=== PATIENT | female | born 1940 | race Caucasian/White ===

== ENCOUNTER 2019-09-08 16:29 | Emergency (ER) | payer MEDICARE, BC | END 2019-09-08 20:05 | disposition home or self-care (01) | LOC: ERS 16:29 | DX: M79.89 Other specified soft tissue disorders (principal); I10 Essential (primary) hypertension; Z79.899 Other long term (current) drug therapy | CPT/HCPCS: 36415; 83880; 99283 ==

== ENCOUNTER 2019-09-20 10:31 | Inpatient (IN) | payer MEDICARE, BC ==
[2019-09-20 11:01] LABS: #Eosinphils 0.1 thou/uL (0.0-0.7); #Lymphocytes 1.1 thou/uL (1.20-3.40); #Monocytes 0.8 thou/uL (0.11-0.59); #Neutrophils 7.5 thou/uL (1.40-6.50); %Basophils 0.4 % (0.0-1.0); %Eosinophils 0.8 % (0.0-10.0); %Lymphocytes 11.4 % (21.0-51.0); %Monocytes 8.3 % (0.0-10.0); %Neutrophils 79.1 % (42.0-75.0); Hemoglobin 13.2 g/dL (12.0-16.0); Mean Corpuscular HGB CONC 31.9 g/dL (32.0-36.0); Mean Corpuscular Hemoglobin 27.6 pg (27.0-31.0); Mean Corpuscular Volume 86.5 fL (78.0-98.0); Mean Platelet Volume 7.8 fL (7.4-10.4); Platelet Count 300 thou/uL (130-400); RBC Distribution Width 13.8 % (11.5-14.5); White Blood Cell (WBC) Count 9.4 thou/uL (4.8-10.8)
--- NOTE | 2019-09-20 11:15 | RAD ---
PA AND LATERAL CHEST: Date: 09/20/2019 HISTORY: Leg swelling and shortness of breath. COMPARISON: None. FINDINGS: Heart size within normal limits. There are bilateral pleural effusions and associated bibasilar lung changes. Mild vascular engorgement is noted. IMPRESSION: Moderate bilateral pleural effusions with bibasilar lung changes, probably related to atelectasis. Mi ld vascular prominence, but no interstitial edema change seen. POS: [facility]
[2019-09-20 11:26] LABS: ALT (SGPT) 25 U/L (8-55); AST (SGOT) 23 U/L (5-34); Albumin 3.6 g/dL (3.4-4.8); Alkaline Phosphatase 120 U/L (40-110); Anion Gap 13 mmol/L (10-20); BUN (Urea Nitrogen) 20 mg/dL (9.8-20.1); Bilirubin, Total 0.9 mg/dL (0.2-1.2); Calc. Creatinine Clearance 0 mL/min (70-130); Calcium 9.3 mg/dL (7.8-10.44); Carbon Dioxide 23 mmol/L (23-31); Chloride 103 mmol/L (98-107); Estimated GFR-MDRD 58; Globulin 3.4 g/dL (2.4-3.5); Glucose 131 mg/dL (83-110); Potassium 4.2 mmol/L (3.5-5.1); Sodium 135 mmol/L (136-145)
[2019-09-20 11:48] LABS: CKMB 3.4 ng/mL (0-6.6)
[2019-09-20] MEDS ORDERED: Cefepime 2 GM VIAL ONE (12:23)
[2019-09-20] MEDS ORDERED: Furosemide 40 MG/4 ML VIAL ONE (12:23)
[2019-09-20] MEDS ORDERED: Vancomycin HCl 1.25 GM in Sodium Chloride 0.9% 250 ML 250 ML IVPB SCH (12:30)
[2019-09-20 14:32] LABS: Troponin I 0.034 ng/mL (< 0.028)
[2019-09-20] MEDS ORDERED: Ondansetron ODT 4 MG TAB SL PRN (17:39)
[2019-09-20] MEDS ORDERED: Ondansetron PF 4 MG/2 ML Vial IVP PRN (17:39)
[2019-09-20] MEDS ORDERED: Acetaminophen 325 MG TAB PO PRN (17:39)
--- NOTE | 2019-09-20 18:23 | PDOC.HHP ---
Hospitalist HPI - History of Present Illness SOB and BLE swelling x 2 weeks History of Present Illness: The patient is a 78/F with PMH significant for HTN and heart murmur that presents to ER for above complaint. The patient reports increasing bilateral lower extremity swelling over past two weeks. Reports some associated HERMAN and dry cough. Denies orthopnea, chest pain or heart palpitations. Reports striking her right baker on her bed two days ago, which caused a wound, denies any fever, chills, nausea or vomiting. She was seen in the ER approximately two weeks prior for swelling to her Lower extremities. BNP 921. She was discharged from the ER with instructions to increase her spironolactone and follow up with PCP. She said she increased her medication but it was not helping. ED Course: VS T 97.6F, BP 163/104, HR 112, RR 20, Sp02 95% RA EKG Sinus Tachycardia CXR Bilateral pulmonary effusions BNP 1229 CE indeterminate LA 2.0 Given Vanc and Cefipime Lasix 40mg IVP Hospitalist ROS - Review of Systems Constitutional: denies: fever, chills, sweats, weakness, malaise, other Eyes: denies: pain, vision change, conjunctivae inflammation, eyelid inflammation, redness, other ENT: denies: ear pain, ear discharge, nose pain, nose discharge, nose congestion , mouth pain, mouth swelling, throat pain, throat swelling, other Respiratory: reports: cough, dry, shortness of breath, SOB with excertion. denies: hemoptysis, pleuritic pain, sputum, wheezing Cardiovascular: reports: edema. denies: chest pain, palpitations, orthopnea, paroxysmal noc. dyspnea, light headedness, other Gastrointestinal: denies: nausea, vomiting, abdominal pain, diarrhea, constipation, melena, hematochezia, other Genitourinary: denies: dysuria, frequency, incontinence, hematuria, retention, other Musculoskeletal: denies: neck pain, shoulder pain, arm pain, back pain, hand pain, leg pain, foot pain, other Skin: reports: lesions (wound to RLE baker) Neurological: denies: weakness, numbness, incoordination, change in speech, confusion, seizures, other Hospitalist History - Past Medical History Cardiac: reports: HTN, Other (heart murmur) Pulmonary: reports: no pertinent history [employer] 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 Gastrointestinal: reports: no pertinent history Heme/Onc: reports: no pertinent history Hepatobiliary: reports: no pertinent history Psych: reports: no pertinent history Musculoskeletal: reports: no pertinent history Rheumatologic: reports: no pertinent history Infectious Disease: reports: no pertinent history ENT: reports: no pertinent history Renal/: reports: no pertinent history Endocrine: reports: no pertinent history Dermatology: reports: no pertinent history - Past Surgical History Past Surgical History: reports: no pertinent history - Family History Family History: reports: no pertinent history - Social History Smoking Status: Never smoker Alcohol: reports: None Drugs: reports: none Living Situation: With Family Occupation: Lives with friend in [place], 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 [employer] Activity level: independent ambulation - Exam General Appearance: NAD, awake alert Eye: anicteric sclera ENT: normocephalic atraumatic Neck: supple, no JVD, no thyromegaly Heart: RRR, no gallops, diminshed peripheral pulses, III/IV Respiratory: no wheezes, rales Respiratory - other findings: lower lobes Gastrointestinal: soft, non-tender, non-distended, normal bowel sounds, no guarding, no rigidity Extremities: no cyanosis, no clubbing Extremities - other findings: 3+ edema BLE Skin - other findings: RLE cellulits with stasis ulcer to baker Neurological: cranial nerve grossly intact, no focal deficits Musculoskeletal: normal tone, normal strength Psychiatric: normal affect, A&O x 3 Hospitalist Results - Labs Result Diagrams: 09/20/19 10:46 09/20/19 10:46 Lab results: WBC 9.4 thou/uL (4.8-10.8) 09/20/19 10:46 Hgb 13.2 g/dL (12.0-16.0) 09/20/19 10:46 Hct 41.5 % (36.0-47.0) 09/20/19 10:46 MCV 86.5 fL (78.0-98.0) 09/20/19 10:46 Plt Count 300 thou/uL (130-400) 09/20/19 10:46 Neutrophils % 79.1 % (42.0-75.0) H 09/20/19 10:46 Sodium 135 mmol/L (136-145) L 09/20/19 10:46 Potassium 4.2 mmol/L (3.5-5.1) 09/20/19 10:46 Chloride 103 mmol/L (98-107) 09/20/19 10:46 Carbon Dioxide 23 mmol/L (23-31) 09/20/19 10:46 BUN 20 mg/dL (9.8-20.1) 09/20/19 10:46 Creatinine 0.93 mg/dL (0.6-1.1) 09/20/19 10:46 Glucose 131 mg/dL (83-110) H 09/20/19 10:46 Lactic Acid 2.0 mmol/L (0.5-2.2) 09/20/19 12:39 Calcium 9.3 mg/dL (7.8-10.44) 09/20/19 10:46 Total Bilirubin 0.9 mg/dL (0.2-1.2) 09/20/19 10:46 AST 23 U/L (5-34) 09/20/19 10:46 ALT 25 U/L (8-55) 09/20/19 10:46 Alkaline Phosphatase 120 U/L (40-110) H 09/20/19 10:46 CK-MB (CK-2) 3.4 ng/mL (0-6.6) 09/20/19 10:46 Troponin I 0.030 ng/mL (< 0.028) H 09/20/19 16:49 B-Natriuretic Peptide 1229.5 pg/mL (0-100) H 09/20/19 10:46 Serum Total Protein 7.0 g/dL (6.0-8.3) 09/20/19 10:46 Albumin 3.6 g/dL (3.4-4.8) 09/20/19 10:46 Additional comment: Laboratory Tests 09/20/19 09/20/19 09/20/19 10:46 10:46 12:39 Lactic Acid 2.0 CK-MB (CK-2) 3.4 Troponin I 0.031 H B-Natriuretic Peptide 1229.5 H 09/20/19 09/20/19 13:46 16:49 Lactic Acid CK-MB (CK-2) Troponin I 0.034 H 0.030 H B-Natriuretic Peptide - EKG Interpretation EKG: sinus tachycardia - Radiology Interpretation Chest x-ray Status: report reviewed by me Hospitalist H&P A/P - Plan Plan: Impression: Acute CHF exacerbation Bilateral pleural effusions Heart murmur III/ Cellulitis, right lower extremity Indeterminate troponins HTN,chronic Plan: manager monitoring Continue lasix Start BB and JEFERSON-I obtain Echocardiogram Consult cardiology and Cardiac rehab Continue IV Vanc Consult wound care Continue ASA 81mg Will hold spironolactone for now. BMP, CBC, TSH, Mg, FLP in AM
[2019-09-20] MEDS ORDERED: Vancomycin HCl 750 MG in Sodium Chloride 0.9% 250 ML 250 ML IVPB SCH (20:00)
[2019-09-20] MEDS ORDERED: Lisinopril 5 MG TAB PO SCH (21:00)
[2019-09-20] MEDS ORDERED: Carvedilol 3.125 MG TAB PO SCH (21:00)
[2019-09-20] MEDS ORDERED: Famotidine 20 MG TAB PO SCH (21:00)
[2019-09-20] MEDS: Furosemide 40 MG/4 ML VIAL SLOW IVP SCH (21:15)
[2019-09-21 04:56] LABS: #Basophils 0.1 thou/uL (0.0-0.2); #Eosinphils 0.2 thou/uL (0.0-0.7); #Lymphocytes 1.5 thou/uL (1.20-3.40); #Monocytes 0.9 thou/uL (0.11-0.59); #Neutrophils 6.7 thou/uL (1.40-6.50); %Basophils 0.9 % (0.0-1.0); %Eosinophils 2.2 % (0.0-10.0); %Lymphocytes 16.1 % (21.0-51.0); %Neutrophils 70.8 % (42.0-75.0); Mean Corpuscular HGB CONC 32.9 g/dL (32.0-36.0); Mean Corpuscular Hemoglobin 28.2 pg (27.0-31.0); Mean Corpuscular Volume 85.8 fL (78.0-98.0); Mean Platelet Volume 8.4 fL (7.4-10.4); Platelet Count 256 thou/uL (130-400); RBC Distribution Width 13.5 % (11.5-14.5); Red Blood Cell (RBC) Count 4.59 mill/uL (4.20-5.40); White Blood Cell (WBC) Count 9.4 thou/uL (4.8-10.8)
[2019-09-21 05:21] LABS: Anion Gap 16 mmol/L (10-20); BUN (Urea Nitrogen) 23 mg/dL (9.8-20.1); Calc. Creatinine Clearance 32 mL/min (70-130); Calcium 8.8 mg/dL (7.8-10.44); Carbon Dioxide 25 mmol/L (23-31); Cardiac Risk 2.8 (Less than 4.5); Chloride 100 mmol/L (98-107); Cholesterol 153 mg/dl (< 200 Desired); Estimated GFR-MDRD 53; Glucose 118 mg/dL (83-110); HDL Cholesterol 54 mg/dL (>60 Neg Risk); LDL Cholesterol, Calculated 72 mg/dL; Magnesium 2.1 mg/dL (1.6-2.6); Potassium 3.6 mmol/L (3.5-5.1); Sodium 137 mmol/L (136-145); Triglycerides 136 mg/dL (Less than 150)
--- NOTE | 2019-09-21 08:01 | PDOC.HOSPP ---
- Subjective Encounter Date: 09/21/19 Encounter Time: 13:30 Subjective: Patient still a little SOB. Urinating a lot. Now stating that in addition to BP meds in the past not working, that she developed a bad rash and trouble breathing with lisinopril, she thinks eventually got a rash with nifedipine, and not sure about betablockers. Can't remember the name of the med. Never been on Carvedilol before. Willing to try this one. Edema in legs much better and redness in RLE resolving. - Objective Vital Signs & Weight: Vital Signs (12 hours) Temp Pulse Resp BP BP Pulse Ox 09/21/19 03:55 97.5 F L 104 H 16 156/92 H 98 09/20/19 21:20 102 H 145/90 H Weight Weight 95 lb 6.4 oz I&O: 09/20/19 09/21/19 09/22/19 06:59 06:59 06:59 Intake Total 450 Output Total 1400 Balance -950 Result Diagrams: 09/21/19 04:08 09/21/19 04:08 Hospitalist ROS - Review of Systems Constitutional: denies: fever, chills Respiratory: reports: shortness of breath, SOB with excertion. denies: cough Cardiovascular: reports: edema. denies: chest pain, palpitations, orthopnea Gastrointestinal: denies: nausea, vomiting, abdominal pain Skin: reports: rash - Medication Medications: Active Medications Generic Name Dose Route Start Last Admin Trade Name Freq PRN Reason Stop Dose Admin Carvedilol 3.125 mg 09/20/19 21:00 09/20/19 21:15 Coreg PO 3.125 mg BID MUKUND Administration Furosemide 40 mg 09/20/19 21:00 09/20/19 21:15 Lasix SLOW IVP 40 mg BID MUKUND Administration Vancomycin HCl 750 mg/ Sodium 250 mls @ 250 mls/hr 09/20/19 20:00 09/20/19 21 :14 Chloride IVPB 250 mls 2000 MUKUND Administration Lisinopril 5 mg 09/20/19 21:00 09/20/19 21:20 Zestril PO Not Given BID MUKUND - Exam General Appearance: NAD, awake alert ENT: moist mucosa Heart: RRR, no gallops, no rubs, murmur present, III/IV Respiratory: no wheezes, no ronchi Respiratory - other findings: few crackles in bases Gastrointestinal: soft, non-tender, non-distended, normal bowel sounds Extremities: 1+ LE edema Extremities - other findings: starting to get wrinkly, redness on right decreased to nml edema red Psychiatric: normal affect, normal behavior, A&O x 3 Hosp A/P (1) Acute CHF (congestive heart failure) Code(s): I50.9 - HEART FAILURE, UNSPECIFIED Status: Acute Qualifiers: Heart failure type: unspecified Qualified Code(s): I50.9 - Heart failure, unspecified (2) Pleural effusion Code(s): J90 - PLEURAL EFFUSION, NOT ELSEWHERE CLASSIFIED Status: Acute Plan: bilateral (3) Cellulitis of right leg Code(s): L03.115 - CELLULITIS OF RIGHT LOWER LIMB Status: Acute (4) Heart murmur Code(s): R01.1 - CARDIAC MURMUR, UNSPECIFIED Status: Chronic (5) Elevated troponin Code(s): R79.89 - OTHER SPECIFIED ABNORMAL FINDINGS OF BLOOD CHEMISTRY Status : Acute (6) HTN (hypertension) Code(s): I10 - ESSENTIAL (PRIMARY) HYPERTENSION Status: Chronic Qualifiers: Hypertension type: essential hypertension Qualified Code(s): I10 - Essential (primary) hypertension - Plan Patient reportedly with allergies JEFERSON-I, nifedipine, possibly betablockers but not really sure and if so was only a rash. Will try a low dose carvedilol dose. Cardiology pending. ECHO pending. Lasix diuresis Vancomycin IV for cellulitis- resolving, will switch to oral Keflex. DVT Proph: Lovenox
[2019-09-21] MEDS: medroxyPROGESTERone Acetate 5 MG TAB PO SCH (08:59)
[2019-09-21] MEDS: Furosemide 40 MG/4 ML VIAL SLOW IVP SCH ×2 (09:00→20:48)
[2019-09-21] MEDS: Enoxaparin Sodium 40 MG/0.4 ML SYRINGE SC SCH (09:00)
[2019-09-21] MEDS: Aspirin Chewable 81 MG TAB PO SCH (09:00)
[2019-09-21 10:58] VITALS: BMI 17.4
[2019-09-21] MEDS: Cephalexin 250 MG CAP PO SCH (17:15)
[2019-09-21] MEDS: Carvedilol 3.125 MG TAB PO SCH (17:15)
--- NOTE | 2019-09-21 17:56 | CON ---
DATE OF CONSULTATION: 09/21/2019 REASON FOR CONSULTATION: CHF. HISTORY OF PRESENT ILLNESS: Ms. Guerrero is a very pleasant 78-year-old white female, who comes to the hospital for shortness of breath and swelling. She has noticed for the last 2 weeks slowly progressive worsening shortness of breath, and worsening bilateral lower extremity edema got to the point where she felt so bad, she decided to come in for evaluation. She was found to have edema with mildly elevated BNP. She was admitted given IV dose of Lasix. She has urinated quite well. Cardiology being consulted for further evaluation and care. On my evaluation, Ms. Guerrero tells me she has had a history of a heart murmur in the past, so she feels this is going to be the problem. We did an echocardiogram earlier today, which I have already seen, and she has severe mitral regurgitation with posterior mitral valve prolapse, likely either congenital prolapse versus a ruptured chordae tendineae. She states she has had this murmur for several years and she thinks she blew it in a spin class about 20 years ago. PAST MEDICAL HISTORY: 1. Hypertension. 2. History of heart murmur. PAST SURGICAL HISTORY: None. FAMILY HISTORY: No early coronary artery disease. SOCIAL HISTORY: No alcohol, tobacco, or drugs. Lives in [place]. 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 She actually does yoga every day. OUTPATIENT MEDICATIONS: 1. Provera. 2. Spironolactone 25 mg a day. 3. Premarin. 4. Aspirin 81 a day. ALLERGIES: AVOCADO, BETA-BLOCKERS, LISINOPRIL, TERRA, PISTACHIO NUTS, VERAPAMIL. REVIEW OF SYSTEMS: A 12-point review of systems was done and was all negative unless stated in the history of present illness. PHYSICAL EXAMINATION: VITAL SIGNS: Temperature 98.4, pulse 104, respiratory rate 18, saturating 95% on room air, blood pressure 145/85. GENERAL: Awake, alert, and oriented x3, in no distress. HEENT: Normocephalic and atraumatic. NECK: Supple. LUNGS: Clear. CARDIOVASCULAR: S1 and S2. There is a very loud grade 3/6 systolic murmur heard at the apex, holosystolic radiated to the rest of the precordium. ABDOMEN: Soft. Positive bowel sounds. EXTREMITIES: 2+ edema with erythema, worse in the right. LABORATORY DATA: Laboratory work was reviewed. White count of 9.4, hemoglobin 13, hematocrit 41, platelet count of 300. Chemistries with sodium of 137, potassium 3.6, GFR of 53 with a creatinine 1.01, and BUN of 23. Troponin has been in the indeterminate range of 0.03, 0.03, 0.03. BNP at 1229. Triglycerides of 136, cholesterol total 153, LDL of 72, HDL of 54, TSH was 4.2. IMAGING STUDIES: Chest x-ray shows bilateral pleural effusions, moderate with bibasilar lung changes, mild vascular prominence, but no edema. Echocardiogram was reviewed and showed an EF of 60% to 65% with dilated right ventricle, dilated left atrium and right atrium. There are small pleural effusions. There are right ventricular systolic pressures estimated at 68 mmHg. There is a posterior mitral valve prolapse, which cannot rule out ruptured chordae with severe anteriorly directed jet of mitral regurgitation. ASSESSMENT: 1. Acute on chronic diastolic heart failure. 2. Severe mitral regurgitation. 3. Posterior leaflet mitral valve prolapse/ruptured chordae. 4. Hypertension. PLAN: 1. Continue IV diuresis. 2. She will need valve replacement. Her EF is adequate for this. We will plan on sending her to [place] when she is better diuresed. We will plan on diuresing her over the weekend. She is still not ready to lay flat for a heart catheterization. Wednesday, we will plan on doing a heart catheterization to see if she is going to need a bypass on top of the valve. If there is no bypass needed, which is what I would hope, we will send her to [place] to hopefully have a minimally invasive mitral valve repair/replacement. 3. The patient understands, verbalized understanding of all this, and we will proceed. Continue diuresis for now. Thank you for letting us participate in the care of your patient. We will follow. Job ID: [id number]
[2019-09-21] MEDS: Famotidine 20 MG TAB PO SCH (20:47)
[2019-09-22] MEDS: Cephalexin 250 MG CAP PO SCH ×4 (00:34→17:36)
[2019-09-22 04:54] LABS: #Basophils 0.1 thou/uL (0.0-0.2); #Eosinphils 0.3 thou/uL (0.0-0.7); #Lymphocytes 1.5 thou/uL (1.20-3.40); #Monocytes 0.9 thou/uL (0.11-0.59); #Neutrophils 6.2 thou/uL (1.40-6.50); %Basophils 1.2 % (0.0-1.0); %Lymphocytes 16.6 % (21.0-51.0); %Neutrophils 69.3 % (42.0-75.0); Hemoglobin 12.7 g/dL (12.0-16.0); Mean Corpuscular HGB CONC 33.2 g/dL (32.0-36.0); Mean Corpuscular Volume 84.3 fL (78.0-98.0); Mean Platelet Volume 8.3 fL (7.4-10.4); Platelet Count 237 thou/uL (130-400); RBC Distribution Width 13.5 % (11.5-14.5); Red Blood Cell (RBC) Count 4.51 mill/uL (4.20-5.40)
[2019-09-22 05:56] LABS: Anion Gap 15 mmol/L (10-20); BUN (Urea Nitrogen) 22 mg/dL (9.8-20.1); Calc. Creatinine Clearance 29 mL/min (70-130); Calcium 8.5 mg/dL (7.8-10.44); Carbon Dioxide 25 mmol/L (23-31); Chloride 100 mmol/L (98-107); Estimated GFR-MDRD 49; Glucose 104 mg/dL (83-110); Potassium 3.5 mmol/L (3.5-5.1); Sodium 136 mmol/L (136-145)
[2019-09-22] MEDS: Furosemide 40 MG/4 ML VIAL SLOW IVP SCH (08:55)
[2019-09-22] MEDS: Carvedilol 3.125 MG TAB PO SCH ×2 (08:56→17:36)
[2019-09-22] MEDS: Aspirin Chewable 81 MG TAB PO SCH (08:56)
[2019-09-22] MEDS: Enoxaparin Sodium 40 MG/0.4 ML SYRINGE SC SCH (08:56)
[2019-09-22] MEDS: medroxyPROGESTERone Acetate 5 MG TAB PO SCH (08:57)
--- NOTE | 2019-09-22 14:37 | PDOC.CPN ---
- Subjective Date: 09/22/19 Time: 14:33 Interval history: She is doing much better. She is able to lay flat without issues. Her legs are less swollen and feels better appetite. - Review of Systems General: denies: fever/chills, weight/appetite/sleep changes, night sweats, fatigue Respiratory: denies: cough, congestion, shortness of breath, exercise intolerance Cardiovascular: denies: chest pain, palpitation, edema, paroxysmal nocturnal dyspnea, orthopnea Gastrointestinal: denies: nausea, vomiting, diarrhea, constipation, abd pain, GI bleeding Musculoskeletal: denies: pain, tenderness, stiffness, swelling, arthritis/ arthralgias Neurological: denies: numbness, syncope, seizure, weakness - Objective Allergies/Adverse Reactions: Allergies Allergy/AdvReac Type Severity Reaction Status Date / Time avocado Allergy Verified 09/20/19 18:31 Beta-Blockers Allergy Verified 09/20/19 12:27 (Beta-Adrenergic Bloc lisinopril Allergy Verified 09/20/19 12:27 caroline Allergy Verified 09/20/19 18:31 pistachio nut Allergy Verified 09/20/19 18:31 verapamil Allergy Verified 09/20/19 12:27 Visit Medications: Current Medications Aspirin (Aspirin Chewable) 81 mg PO DAILY [facility] Last Admin: 09/22/19 08:56 Dose: 81 mg Carvedilol (Coreg) 3.125 mg PO BID-WM [facility] Last Admin: 09/22/19 08:56 Dose: 3.125 mg Cephalexin (Keflex) 500 mg PO Q6HR [facility] Last Admin: 09/22/19 12:36 Dose: 500 mg Enoxaparin Sodium (Lovenox) 30 mg SC 0900 [facility] Estrogens Conjugated (Premarin) 0.9 mg PO DAILY [facility] Last Admin: 09/22/19 08:56 Dose: 0.9 mg Famotidine (Pepcid) 20 mg PO HS [facility] Last Admin: 09/21/19 20:47 Dose: 20 mg Furosemide (Lasix) 40 mg SLOW IVP BID [facility] Last Admin: 09/22/19 08:55 Dose: 40 mg Guaifenesin/Dextromethorphan (Robitussin Dm) 15 ml PO Q4H PRN PRN Reason: Cough Medroxyprogesterone Acetate (Provera) 5 mg PO DAILY [facility] Last Admin: 09/22/19 08:57 Dose: 5 mg Vital Signs & Weight: Vital Signs Temp Pulse Pulse Pulse Resp BP BP 09/22/19 11:40 97.9 F 82 18 09/22/19 10:21 104 H 112 H 126/72 125/68 09/22/19 08:02 97.8 F 95 17 09/22/19 07:53 BP Pulse Ox Pulse Ox 09/22/19 11:40 107/65 98 09/22/19 10:21 96 09/22/19 08:02 124/77 95 09/22/19 07:53 95 Admit Weight 99 lb 8 oz Weight 90 lb 8 oz - Physical Exam General: alert & oriented x3 HEENT: mucus membranes moist Neck: supple neck Cardiac: regular rate and rhythm, systolic murmur Lungs: clear to auscultation Neuro: grossly intact Abdomen: active bowel sounds Extremities: no edema Skin: clear Musculoskeletal: no pain - Labs Result Diagrams: 09/22/19 04:32 09/22/19 04:32 Troponin/CKMB CK-MB (CK-2) 3.4 ng/mL (0-6.6) 09/20/19 10:46 Troponin I 0.030 ng/mL (< 0.028) H 09/20/19 16:49 - Telemetry Sinus rhythms and dysrhythmias: sinus rhythm - Assessment/Plan Assessment/Plan: 1. Acute decompensated heart failure 2. Severe MR 3. Posterior Mitral valve prolapse, cannot rule out ruptured chordae PLAN: - Will plan on [facility] Wednesday in preparation for mitral valve repair/ replacement. - Spoke about sirks and benefits of procedure, risks included but not limited to stroke, MA, , bleeding and need for blood transfusion, limb loss, organ loss. She understands and verbalizes understanding of this and agrees to proceed. - Will do NPO p midnight Wednesday to Wednesday. - Continue IV diuresis for now. Will need gentle hydration wednesday night.
[2019-09-22] MEDS ORDERED: Communication Order-Pharmacy FS SCH (14:45)
--- NOTE | 2019-09-22 15:23 | PDOC.HOSPP ---
- Subjective Encounter Date: 09/22/19 Encounter Time: 10:15 Subjective: pt up in bed no complains. - Objective Vital Signs & Weight: Vital Signs (12 hours) Temp Pulse Pulse Pulse Resp BP BP 09/22/19 11:40 97.9 F 82 18 09/22/19 10:21 104 H 112 H 126/72 125/68 09/22/19 08:02 97.8 F 95 17 09/22/19 07:53 BP Pulse Ox Pulse Ox 09/22/19 11:40 107/65 98 09/22/19 10:21 96 09/22/19 08:02 124/77 95 09/22/19 07:53 95 Weight Admit Weight 99 lb 8 oz Weight 90 lb 8 oz I&O: 09/21/19 09/22/19 09/23/19 06:59 06:59 06:59 Intake Total 450 690 Output Total 1400 2750 Balance -950 -2060 Result Diagrams: 09/22/19 04:32 09/22/19 04:32 Hospitalist ROS - Review of Systems Cardiovascular: denies: chest pain, palpitations, orthopnea, paroxysmal noc. dyspnea, edema, light headedness, other Gastrointestinal: denies: nausea, vomiting, abdominal pain, diarrhea, constipation, melena, hematochezia, other Genitourinary: denies: dysuria, frequency, incontinence, hematuria, retention, other Musculoskeletal: denies: neck pain, shoulder pain, arm pain, back pain, hand pain, leg pain, foot pain, other - Medication Medications: Active Medications Generic Name Dose Route Start Last Admin Trade Name Freq PRN Reason Stop Dose Admin Aspirin 81 mg 09/21/19 09:00 09/22/19 08:56 Aspirin Chewable PO 81 mg DAILY MUKUND Administration Carvedilol 3.125 mg 09/21/19 17:00 09/22/19 08:56 Coreg PO 3.125 mg BID-WM MUKUND Administration Cephalexin 500 mg 09/21/19 18:00 09/22/19 12:36 Keflex PO 500 mg Q6HR MUKUND Administration Estrogens Conjugated 0.9 mg 09/21/19 09:00 09/22/19 08:56 Premarin PO 0.9 mg DAILY MUKUND Administration Famotidine 20 mg 09/21/19 21:00 09/21/19 20:47 Pepcid PO 20 mg HS MUKUND Administration Medroxyprogesterone Acetate 5 mg 09/21/19 09:00 09/22/19 08:57 Provera PO 5 mg DAILY MUKUND Administration - Exam Neck: negative: supple, symmetric, no JVD, no thyromegaly, no lymphadenopathy, no carotid bruit, JVD Heart - other findings: systolic murmur to left sternum Respiratory: negative: CTAB, no wheezes, no rales, no ronchi, normal chest expansion, no tachypnea, normal percussion, rales, rhonchi, tachypneic, wheezes Gastrointestinal: negative: soft, non-tender, non-distended, normal bowel sounds , no palpable masses, no hepatomegaly, no splenomegaly, no bruit, no guarding, no rigidity, tender to palpation, distended, diminished bowl sounds, voluntary guarding Musculoskeletal - other findings: right baker has a small wound, mild erythema. will monitor Hosp A/P - Plan (1) Acute CHF (congestive heart failure) Code(s): I50.9 - HEART FAILURE, UNSPECIFIED Status: Acute Qualifiers: Heart failure type: unspecified Qualified Code(s): I50.9 - Heart failure, unspecified (2) Pleural effusion Code(s): J90 - PLEURAL EFFUSION, NOT ELSEWHERE CLASSIFIED Status: Acute Plan: bilateral (3) Cellulitis of right leg Code(s): L03.115 - CELLULITIS OF RIGHT LOWER LIMB Status: Acute (4) Heart murmur Code(s): R01.1 - CARDIAC MURMUR, UNSPECIFIED Status: Chronic (5) Elevated troponin Code(s): R79.89 - OTHER SPECIFIED ABNORMAL FINDINGS OF BLOOD CHEMISTRY Status : Acute (6) HTN (hypertension) Code(s): I10 - ESSENTIAL (PRIMARY) HYPERTENSION Status: Chronic Qualifiers: Hypertension type: essential hypertension Qualified Code(s): I10 - Essential (primary) hypertension 7) Mitral regurgitation. - Plan Patient reportedly with allergies JEFERSON-I, nifedipine, possibly betablockers but not really sure and if so was only a rash. Will try a low dose carvedilol dose. Cardiology pending. ECHO pending. Lasix diuresis Vancomycin IV for cellulitis- resolving, will switch to oral Keflex. DVT Proph: Lovenox pt to undergo cardiac cath on wednesday. possible transfer to [place] for Mitral valve repair/replacement
[2019-09-22] MEDS: Famotidine 20 MG TAB PO SCH (21:48)
[2019-09-23] MEDS: Cephalexin 250 MG CAP PO SCH ×4 (01:23→17:13)
[2019-09-23 04:59] LABS: Anion Gap 15 mmol/L (10-20); BUN (Urea Nitrogen) 25 mg/dL (9.8-20.1); Calc. Creatinine Clearance 32 mL/min (70-130); Calcium 8.5 mg/dL (7.8-10.44); Carbon Dioxide 26 mmol/L (23-31); Chloride 99 mmol/L (98-107); Estimated GFR-MDRD 60; Glucose 100 mg/dL (83-110); Potassium 3.3 mmol/L (3.5-5.1); Sodium 137 mmol/L (136-145)
[2019-09-23] MEDS ORDERED: Potassium Chloride 20 MEQ TAB PO SCH (08:00)
[2019-09-23] MEDS ORDERED: Furosemide 40 MG/4 ML VIAL SLOW IVP SCH (09:00)
[2019-09-23] MEDS: Aspirin Chewable 81 MG TAB PO SCH (09:17)
[2019-09-23] MEDS: Enoxaparin Sodium 30 MG/0.3 ML SYRINGE SC SCH (09:18)
[2019-09-23] MEDS: medroxyPROGESTERone Acetate 5 MG TAB PO SCH (09:18)
[2019-09-23] MEDS: Carvedilol 3.125 MG TAB PO SCH ×2 (09:18→17:14)
--- NOTE | 2019-09-23 11:53 | PDOC.CPN ---
- Subjective Date: 09/23/19 Time: 11:57 Interval history: The pt seen and examined. No overnight events. No cardiac complaints. - Objective Allergies/Adverse Reactions: Allergies Allergy/AdvReac Type Severity Reaction Status Date / Time avocado Allergy Verified 09/20/19 18:31 Beta-Blockers Allergy Verified 09/20/19 12:27 (Beta-Adrenergic Bloc lisinopril Allergy Verified 09/20/19 12:27 caroline Allergy Verified 09/20/19 18:31 pistachio nut Allergy Verified 09/20/19 18:31 verapamil Allergy Verified 09/20/19 12:27 Visit Medications: Current Medications Aspirin (Aspirin Chewable) 81 mg PO DAILY [facility] Last Admin: 09/23/19 09:17 Dose: 81 mg Carvedilol (Coreg) 3.125 mg PO BID-[facility] Last Admin: 09/23/19 09:18 Dose: 3.125 mg Cephalexin (Keflex) 500 mg PO Q6HR [facility] Last Admin: 09/23/19 11:17 Dose: 500 mg Enoxaparin Sodium (Lovenox) 30 mg SC 0900 [facility] Last Admin: 09/23/19 09:18 Dose: 30 mg Estrogens Conjugated (Premarin) 0.9 mg PO DAILY [facility] Last Admin: 09/23/19 09:16 Dose: 0.9 mg Famotidine (Pepcid) 20 mg PO HS [facility] Last Admin: 09/22/19 21:48 Dose: 20 mg Furosemide (Lasix) 40 mg SLOW IVP DAILY [facility] Last Admin: 09/23/19 09:18 Dose: 40 mg Guaifenesin/Dextromethorphan (Robitussin Dm) 15 ml PO Q4H PRN PRN Reason: Cough Sodium Chloride (Normal Saline 0.9%) 500 mls @ 50 mls/hr IV .Q10H [facility] Stop: 09/25/19 10:00 Medroxyprogesterone Acetate (Provera) 5 mg PO DAILY [facility] Last Admin: 09/23/19 09:18 Dose: 5 mg Miscellaneous Information (Communication Order-Pharmacy) 0 each FS ONE [facility] Stop: 09/25/19 14:46 Vital Signs & Weight: Vital Signs Temp Pulse Resp BP Pulse Ox 09/23/19 11:14 97.6 F 94 18 115/68 98 09/23/19 07:19 97.9 F 81 18 121/74 94 L 09/23/19 03:38 97.6 F 82 16 118/74 95 Admit Weight 99 lb 8 oz Weight 89 lb 8 oz - Physical Exam General: alert & oriented x3 HEENT: mucus membranes moist Neck: supple neck Cardiac: regular rate and rhythm, S1/S2 Lungs: clear to auscultation, other (cough) Neuro: cranial nerve 2-12 intact Extremities: no edema - Labs Result Diagrams: 09/22/19 04:32 09/23/19 04:16 Troponin/CKMB CK-MB (CK-2) 3.4 ng/mL (0-6.6) 09/20/19 10:46 Troponin I 0.030 ng/mL (< 0.028) H 09/20/19 16:49 - Telemetry Sinus rhythms and dysrhythmias: sinus rhythm - Assessment/Plan Assessment/Plan: 1. Acute decompensated heart failure - stable with RA; on coreg, Lasix; not on JEFERSON/ARB due allergy 2. Severe MR - plan for cath on Wednesday for MV eval and possible tx to [place] 3. Posterior Mitral valve prolapse, cannot rule out ruptured chordae 4. Pleural effusion - on Lasix 5. HTN MAR reviewed * Echo on 09/21/2019 with EF 60-65%, kit Aaron dd, severe MR Pt. seen and eval. by me. I agree with the A/P by the OPTICAL FABRICATOR. Chest: mild bibasilar rales. + murmur. gjm
[2019-09-23] MEDS: Famotidine 20 MG TAB PO SCH (22:02)
[2019-09-24] MEDS: Cephalexin 250 MG CAP PO SCH ×2 (00:58→05:53)
[2019-09-24 05:09] LABS: Anion Gap 14 mmol/L (10-20); BUN (Urea Nitrogen) 28 mg/dL (9.8-20.1); Calc. Creatinine Clearance 35 mL/min (70-130); Calcium 8.5 mg/dL (7.8-10.44); Carbon Dioxide 26 mmol/L (23-31); Chloride 98 mmol/L (98-107); Estimated GFR-MDRD 66; Glucose 104 mg/dL (83-110); Potassium 3.5 mmol/L (3.5-5.1); Sodium 134 mmol/L (136-145)
--- NOTE | 2019-09-24 07:21 | PDOC.HOSPP ---
- Subjective Encounter Date: 09/23/19 Encounter Time: 10:30 Subjective: pt up in bed no complains of pain or sob. - Objective Vital Signs & Weight: Vital Signs (12 hours) Temp Pulse Resp BP Pulse Ox 09/24/19 03:23 98.5 F 89 18 119/81 92 L 09/23/19 21:52 98 Weight Admit Weight 99 lb 8 oz Weight 88 lb 6.4 oz I&O: 09/23/19 09/24/19 09/25/19 06:59 06:59 06:59 Intake Total 960 1100 Output Total 1999 1050 Balance -1040 50 Result Diagrams: 09/22/19 04:32 09/24/19 04:12 Hospitalist ROS - Review of Systems Cardiovascular: denies: chest pain, palpitations, orthopnea, paroxysmal noc. dyspnea, edema, light headedness, other Gastrointestinal: denies: nausea, vomiting, abdominal pain, diarrhea, constipation, melena, hematochezia, other Genitourinary: denies: dysuria, frequency, incontinence, hematuria, retention, other - Medication Medications: Active Medications Generic Name Dose Route Start Last Admin Trade Name Freq PRN Reason Stop Dose Admin Aspirin 81 mg 09/21/19 09:00 09/23/19 09:17 Aspirin Chewable PO 81 mg DAILY MUKUND Administration Carvedilol 3.125 mg 09/21/19 17:00 09/23/19 17:14 Coreg PO 3.125 mg BID-WM MUKUND Administration Cephalexin 500 mg 09/21/19 18:00 09/24/19 05:53 Keflex PO 500 mg Q6HR MUKUND Administration Enoxaparin Sodium 30 mg 09/23/19 09:00 09/23/19 09:18 Lovenox SC 30 mg 0900 MUKUND Administration Estrogens Conjugated 0.9 mg 09/21/19 09:00 09/23/19 09:16 Premarin PO 0.9 mg DAILY MUKUND Administration Famotidine 20 mg 09/21/19 21:00 09/23/19 22:02 Pepcid PO 20 mg HS MUKUND Administration Medroxyprogesterone Acetate 5 mg 09/21/19 09:00 09/23/19 09:18 Provera PO 5 mg DAILY MUKUND Administration - Exam Neck: negative: supple, symmetric, no JVD, no thyromegaly, no lymphadenopathy, no carotid bruit, JVD Heart: negative: RRR, no murmur, no gallops, no rubs, normal peripheral pulses, irregular, diminshed peripheral pulses, murmur present, II/IV, III/IV Respiratory: negative: CTAB, no wheezes, no rales, no ronchi, normal chest expansion, no tachypnea, normal percussion, rales, rhonchi, tachypneic, wheezes Gastrointestinal: negative: soft, non-tender, non-distended, normal bowel sounds , no palpable masses, no hepatomegaly, no splenomegaly, no bruit, no guarding, no rigidity, tender to palpation, distended, diminished bowl sounds, voluntary guarding Extremities - other findings: right leg mild erythema and opening to right baker area Hosp A/P - Plan (1) Acute CHF (congestive heart failure) Code(s): I50.9 - HEART FAILURE, UNSPECIFIED Status: Acute Qualifiers: Heart failure type: unspecified Qualified Code(s): I50.9 - Heart failure, unspecified (2) Pleural effusion Code(s): J90 - PLEURAL EFFUSION, NOT ELSEWHERE CLASSIFIED Status: Acute Plan: bilateral (3) Cellulitis of right leg Code(s): L03.115 - CELLULITIS OF RIGHT LOWER LIMB Status: Acute (4) Heart murmur Code(s): R01.1 - CARDIAC MURMUR, UNSPECIFIED Status: Chronic (5) Elevated troponin Code(s): R79.89 - OTHER SPECIFIED ABNORMAL FINDINGS OF BLOOD CHEMISTRY Status : Acute (6) HTN (hypertension) Code(s): I10 - ESSENTIAL (PRIMARY) HYPERTENSION Status: Chronic Qualifiers: Hypertension type: essential hypertension Qualified Code(s): I10 - Essential (primary) hypertension 7) Mitral regurgitation. - Plan Patient reportedly with allergies JEFERSON-I, nifedipine, possibly betablockers but not really sure and if so was only a rash. Will try a low dose carvedilol dose. Cardiology pending. ECHO pending. Lasix diuresis Vancomycin IV for cellulitis- resolving, will switch to oral Keflex. DVT Proph: Lovenox pt to undergo cardiac cath on wednesday. possible transfer to [place] for Mitral valve repair/replacement pt doing well, she is on estrogen and progesterone for about 30y and states that it helps her with headaches. she did has menstrual headaches and continued to have headaches after that.this has been the only thing that has worked for her. I did explain to her the risk of blood clots and CV risk factors. she does not want to stop or taper her meds. will change her lasix to po in am.
[2019-09-24] MEDS: medroxyPROGESTERone Acetate 5 MG TAB PO SCH (08:23)
[2019-09-24] MEDS: Furosemide 40 MG TAB PO SCH (08:23)
[2019-09-24] MEDS: Carvedilol 3.125 MG TAB PO SCH ×2 (08:23→16:06)
[2019-09-24] MEDS: Enoxaparin Sodium 30 MG/0.3 ML SYRINGE SC SCH (08:24)
[2019-09-24] MEDS: cefTRIAXone\\ROCEPHIN 1 GM in Sodium Chloride 0.9% 100 ML IVPB SCH (08:24)
[2019-09-24] MEDS: Aspirin Chewable 81 MG TAB PO SCH (08:24)
[2019-09-24] MEDS: Guaifenesin DM 100-10/5 ML UDCUP PO PRN ×2 (08:27→16:06)
--- NOTE | 2019-09-24 11:16 | PDOC.HOSPP ---
- Subjective Encounter Date: 09/24/19 Encounter Time: 11:15 Subjective: pt up in bed no complains - Objective Vital Signs & Weight: Vital Signs (12 hours) Temp Pulse Resp BP Pulse Ox 09/24/19 07:12 97.6 F 90 16 129/78 94 L 09/24/19 03:23 98.5 F 89 18 119/81 92 L Weight Admit Weight 99 lb 8 oz Weight 88 lb 6.4 oz I&O: 09/23/19 09/24/19 09/25/19 06:59 06:59 06:59 Intake Total 960 1100 Output Total 1999 105 Balance -1040 50 Result Diagrams: 09/22/19 04:32 09/24/19 04:12 Hospitalist ROS - Review of Systems Cardiovascular: denies: chest pain, palpitations, orthopnea, paroxysmal noc. dyspnea, edema, light headedness, other Gastrointestinal: denies: nausea, vomiting, abdominal pain, diarrhea, constipation, melena, hematochezia, other Genitourinary: denies: dysuria, frequency, incontinence, hematuria, retention, other - Medication Medications: Active Medications Generic Name Dose Route Start Last Admin Trade Name Freq PRN Reason Stop Dose Admin Aspirin 81 mg 09/21/19 09:00 09/24/19 08:24 Aspirin Chewable PO 81 mg DAILY MUKUND Administration Carvedilol 3.125 mg 09/21/19 17:00 09/24/19 08:23 Coreg PO 3.125 mg BID-WM MUKUND Administration Enoxaparin Sodium 30 mg 09/23/19 09:00 09/24/19 08:24 Lovenox SC 30 mg 09 MUKUND Administration Estrogens Conjugated 0.9 mg 09/21/19 09:00 09/24/19 08:23 Premarin PO 0.9 mg DAILY MUKUND Administration Famotidine 20 mg 09/21/19 21:00 09/23/19 22:02 Pepcid PO 20 mg HS MUKUND Administration Furosemide 40 mg 09/24/19 07:30 09/24/19 08:23 Lasix PO 40 mg DAILY-AC MUKUND Administration Guaifenesin/Dextromethorphan 15 ml 09/20/19 18:17 09/24/19 08:27 Robitussin Dm PO 15 ml Q4H PRN Administration Cough Ceftriaxone Sodium 1 gm/ 100 mls @ 200 mls/hr 09/24/19 08:00 09/24/19 08:24 Sodium Chloride IVPB 100 mls Q24HR MUKUND Administration Medroxyprogesterone Acetate 5 mg 09/21/19 09:00 09/24/19 08:23 Provera PO 5 mg DAILY MUKUND Administration Sodium Chloride 10 ml 09/24/19 09:00 09/24/19 08:28 Flush - Normal Saline IVF 10 ml Q12HR MUKUND Administration - Exam Neck: negative: supple, symmetric, no JVD, no thyromegaly, no lymphadenopathy, no carotid bruit, JVD Heart: negative: RRR, no murmur, no gallops, no rubs, normal peripheral pulses, irregular, diminshed peripheral pulses, murmur present, II/IV, III/IV Respiratory: negative: CTAB, no wheezes, no rales, no ronchi, normal chest expansion, no tachypnea, normal percussion, rales, rhonchi, tachypneic, wheezes Gastrointestinal: negative: soft, non-tender, non-distended, normal bowel sounds , no palpable masses, no hepatomegaly, no splenomegaly, no bruit, no guarding, no rigidity, tender to palpation, distended, diminished bowl sounds, voluntary guarding Extremities - other findings: mild erythema noted to right lower baker area Hosp A/P - Plan (1) Acute CHF (congestive heart failure) Code(s): I50.9 - HEART FAILURE, UNSPECIFIED Status: Acute Qualifiers: Heart failure type: unspecified Qualified Code(s): I50.9 - Heart failure, unspecified (2) Pleural effusion Code(s): J90 - PLEURAL EFFUSION, NOT ELSEWHERE CLASSIFIED Status: Acute Plan: bilateral (3) Cellulitis of right leg Code(s): L03.115 - CELLULITIS OF RIGHT LOWER LIMB Status: Acute (4) Heart murmur Code(s): R01.1 - CARDIAC MURMUR, UNSPECIFIED Status: Chronic (5) Elevated troponin Code(s): R79.89 - OTHER SPECIFIED ABNORMAL FINDINGS OF BLOOD CHEMISTRY Status : Acute (6) HTN (hypertension) Code(s): I10 - ESSENTIAL (PRIMARY) HYPERTENSION Status: Chronic Qualifiers: Hypertension type: essential hypertension Qualified Code(s): I10 - Essential (primary) hypertension 7) Mitral regurgitation. - Plan Patient reportedly with allergies JEFERSON-I, nifedipine, possibly betablockers but not really sure and if so was only a rash. Will try a low dose carvedilol dose. Cardiology pending. ECHO pending. Lasix diuresis Vancomycin IV for cellulitis- resolving, will switch to oral Keflex. DVT Proph: Lovenox pt to undergo cardiac cath on wednesday. possible transfer to [place] for Mitral valve repair/replacement pt doing well, she is on estrogen and progesterone for about 30y and states that it helps her with headaches. she did has menstrual headaches and continued to have headaches after that.this has been the only thing that has worked for her. I did explain to her the risk of blood clots and CV risk factors. she does not want to stop or taper her meds. will change her lasix to po in am. 09/23 will change po to iv abx for now. will change her lasix to po today. she is going for cardiac cath in am.
--- NOTE | 2019-09-24 14:27 | PDOC.CPN ---
- Subjective Date: 09/24/19 Time: 14:28 Interval history: The pt seen and examined. No overnight events. No cardiac complaints. - Objective Allergies/Adverse Reactions: Allergies Allergy/AdvReac Type Severity Reaction Status Date / Time avocado Allergy Verified 09/20/19 18:31 Beta-Blockers Allergy Verified 09/20/19 12:27 (Beta-Adrenergic Bloc lisinopril Allergy Verified 09/20/19 12:27 caroline Allergy Verified 09/20/19 18:31 pistachio nut Allergy Verified 09/20/19 18:31 verapamil Allergy Verified 09/20/19 12:27 Visit Medications: Current Medications Aspirin (Aspirin Chewable) 81 mg PO DAILY [facility] Last Admin: 09/24/19 08:24 Dose: 81 mg Carvedilol (Coreg) 3.125 mg PO BID-WM [facility] Last Admin: 09/24/19 08:23 Dose: 3.125 mg Enoxaparin Sodium (Lovenox) 30 mg SC 0900 [facility] Last Admin: 09/24/19 08:24 Dose: 30 mg Estrogens Conjugated (Premarin) 0.9 mg PO DAILY [facility] Last Admin: 09/24/19 08:23 Dose: 0.9 mg Famotidine (Pepcid) 20 mg PO HS [facility] Last Admin: 09/23/19 22:02 Dose: 20 mg Furosemide (Lasix) 40 mg PO DAILY-AC [facility] Last Admin: 09/24/19 08:23 Dose: 40 mg Guaifenesin/Dextromethorphan (Robitussin Dm) 15 ml PO Q4H PRN PRN Reason: Cough Last Admin: 09/24/19 08:27 Dose: 15 ml Sodium Chloride (Normal Saline 0.9%) 500 mls @ 50 mls/hr IV .Q10H MUKUND Stop: 09/25/19 10:00 Ceftriaxone Sodium 1 gm/ (Sodium Chloride) 100 mls @ 200 mls/hr IVPB Q24HR [facility] Last Admin: 09/24/19 08:24 Dose: 100 mls Medroxyprogesterone Acetate (Provera) 5 mg PO DAILY [facility] Last Admin: 09/24/19 08:23 Dose: 5 mg Miscellaneous Information (Communication Order-Pharmacy) 0 each FS ONE [facility] Stop: 09/25/19 14:46 Sodium Chloride (Flush - Normal Saline) 10 ml IVF Q12HR [facility] Last Admin: 09/24/19 08:28 Dose: 10 ml Sodium Chloride (Flush - Normal Saline) 10 ml IVF PRN PRN PRN Reason: Saline Flush Vital Signs & Weight: Vital Signs Temp Pulse Resp BP Pulse Ox 09/24/19 11:15 98.1 F 86 16 110/71 97 09/24/19 07:12 97.6 F 90 16 129/78 94 L 09/24/19 03:23 98.5 F 89 18 119/81 92 L Admit Weight 99 lb 8 oz Weight 88 lb 6.4 oz - Physical Exam General: alert & oriented x3 HEENT: mucus membranes moist Neck: supple neck Cardiac: regular rate and rhythm, S1/S2 Lungs: clear to auscultation Neuro: cranial nerve 2-12 intact - Labs Result Diagrams: 09/22/19 04:32 09/24/19 04:12 Troponin/CKMB CK-MB (CK-2) 3.4 ng/mL (0-6.6) 09/20/19 10:46 Troponin I 0.030 ng/mL (< 0.028) H 09/20/19 16:49 - Telemetry Sinus rhythms and dysrhythmias: sinus rhythm - Assessment/Plan Assessment/Plan: 1. Acute decompensated heart failure - stable with RA; on coreg, Lasix; not on JEFERSON/ARB due allergy 2. Severe MR - plan for cath on Wednesday for MV eval and possible tx to [place] 3. Posterior Mitral valve prolapse, cannot rule out ruptured chordae 4. Pleural effusion - on Lasix 5. HTN MAR reviewed * Echo on 09/21/2019 with EF 60-65%, kit Aaron dd, severe MR * Dr Garcia's pt
[2019-09-24] MEDS: Famotidine 20 MG TAB PO SCH (20:02)
[2019-09-25] MEDS ORDERED: Sodium Chloride 0.9% 500 ML IV SCH (00:01)
[2019-09-25 04:57] LABS: Anion Gap 12 mmol/L (10-20); BUN (Urea Nitrogen) 23 mg/dL (9.8-20.1); Calc. Creatinine Clearance 36 mL/min (70-130); Calcium 8.4 mg/dL (7.8-10.44); Carbon Dioxide 24 mmol/L (23-31); Chloride 101 mmol/L (98-107); Estimated GFR-MDRD 70; Glucose 110 mg/dL (83-110); Potassium 3.4 mmol/L (3.5-5.1); Sodium 134 mmol/L (136-145)
[2019-09-25] MEDS: Carvedilol 3.125 MG TAB PO SCH ×2 (05:35→16:45)
[2019-09-25] MEDS: Furosemide 40 MG TAB PO SCH (05:36)
[2019-09-25] MEDS: cefTRIAXone\\ROCEPHIN 1 GM in Sodium Chloride 0.9% 100 ML IVPB SCH (05:36)
[2019-09-25] MEDS: Aspirin Chewable 81 MG TAB PO SCH (05:36)
[2019-09-25] MEDS: medroxyPROGESTERone Acetate 5 MG TAB PO SCH (05:37)
[2019-09-25] MEDS: Enoxaparin Sodium 30 MG/0.3 ML SYRINGE SC SCH (05:40)
[2019-09-25] MEDS ORDERED: Fentanyl 100 MCG/2 ML VIAL ONE (07:11)
[2019-09-25] MEDS ORDERED: Midazolam HCl 2 mg/2 ml Vial ONE (07:12)
[2019-09-25] MEDS ORDERED: Acetaminophen/Codeine 30-300mg Tablet PO PRN (07:32)
[2019-09-25] MEDS ORDERED: Sodium Chloride 0.9% 200 ML IV PRN (07:32)
[2019-09-25] MEDS ORDERED: Potassium Chloride 20 MEQ TAB PO SCH (10:00)
[2019-09-25] MEDS ORDERED: Iopamidol 370 76% 100 ML VIAL ONE (11:59)
--- NOTE | 2019-09-25 15:25 | PDOC.HOSPP ---
- Subjective Encounter Date: 09/25/19 Encounter Time: 11:30 Subjective: pt up in bed no complains. - Objective Vital Signs & Weight: Vital Signs (12 hours) Temp Pulse Resp BP Pulse Ox 09/25/19 11:05 97.7 F 80 18 119/78 98 09/25/19 08:15 77 20 107/67 99 09/25/19 08:00 97.6 F 79 18 112/78 99 09/25/19 03:46 97.8 F 99 14 138/88 98 Weight Admit Weight 99 lb 8 oz Weight 95 lb 11.2 oz I&O: 09/24/19 09/25/19 09/26/19 06:59 06:59 06:59 Intake Total 8134 587 5126 Output Total 3945 248 4842 Balance 50 225 235 Result Diagrams: 09/22/19 04:32 09/25/19 04:19 Hospitalist ROS - Review of Systems Cardiovascular: denies: chest pain, palpitations, orthopnea, paroxysmal noc. dyspnea, edema, light headedness, other Gastrointestinal: denies: nausea, vomiting, abdominal pain, diarrhea, constipation, melena, hematochezia, other Genitourinary: denies: dysuria, frequency, incontinence, hematuria, retention, other Musculoskeletal: denies: neck pain, shoulder pain, arm pain, back pain, hand pain, leg pain, foot pain, other - Medication Medications: Active Medications Generic Name Dose Route Start Last Admin Trade Name Freq PRN Reason Stop Dose Admin Aspirin 81 mg 09/21/19 09:00 09/25/19 05:36 Aspirin Chewable PO 81 mg DAILY MUKUND Administration Carvedilol 3.125 mg 09/21/19 17:00 09/25/19 05:35 Coreg PO 3.125 mg BID-WM MUKUND Administration Enoxaparin Sodium 30 mg 09/23/19 09:00 09/25/19 05:40 Lovenox SC Not Given 0900 MUKUND Estrogens Conjugated 0.9 mg 09/21/19 09:00 09/25/19 05:37 Premarin PO 0.9 mg DAILY MUKUND Administration Famotidine 20 mg 09/21/19 21:00 09/24/19 20:02 Pepcid PO 20 mg HS MUKUND Administration Furosemide 40 mg 09/24/19 07:30 09/25/19 05:36 Lasix PO 40 mg DAILY-AC MUKUND Administration Guaifenesin/Dextromethorphan 15 ml 09/20/19 18:17 09/24/19 16:06 Robitussin Dm PO 15 ml Q4H PRN Administration Cough Ceftriaxone Sodium 1 gm/ 100 mls @ 200 mls/hr 09/24/19 08:00 09/25/19 05:36 Sodium Chloride IVPB 100 mls Q24HR MUKUND Administration Medroxyprogesterone Acetate 5 mg 09/21/19 09:00 09/25/19 05:37 Provera PO 5 mg DAILY MUKUND Administration Sodium Chloride 10 ml 09/24/19 09:00 09/25/19 05:40 Flush - Normal Saline IVF Not Given Q12HR MUKUND - Exam Neck: negative: supple, symmetric, no JVD, no thyromegaly, no lymphadenopathy, no carotid bruit, JVD Heart: negative: RRR, no murmur, no gallops, no rubs, normal peripheral pulses, irregular, diminshed peripheral pulses, murmur present, II/IV, III/IV Respiratory: negative: CTAB, no wheezes, no rales, no ronchi, normal chest expansion, no tachypnea, normal percussion, rales, rhonchi, tachypneic, wheezes Gastrointestinal: negative: soft, non-tender, non-distended, normal bowel sounds , no palpable masses, no hepatomegaly, no splenomegaly, no bruit, no guarding, no rigidity, tender to palpation, distended, diminished bowl sounds, voluntary guarding Hosp A/P - Plan (1) Acute CHF (congestive heart failure) Code(s): I50.9 - HEART FAILURE, UNSPECIFIED Status: Acute Qualifiers: Heart failure type: unspecified Qualified Code(s): I50.9 - Heart failure, unspecified (2) Pleural effusion Code(s): J90 - PLEURAL EFFUSION, NOT ELSEWHERE CLASSIFIED Status: Acute Plan: bilateral (3) Cellulitis of right leg Code(s): L03.115 - CELLULITIS OF RIGHT LOWER LIMB Status: Acute (4) Heart murmur Code(s): R01.1 - CARDIAC MURMUR, UNSPECIFIED Status: Chronic (5) Elevated troponin Code(s): R79.89 - OTHER SPECIFIED ABNORMAL FINDINGS OF BLOOD CHEMISTRY Status : Acute (6) HTN (hypertension) Code(s): I10 - ESSENTIAL (PRIMARY) HYPERTENSION Status: Chronic Qualifiers: Hypertension type: essential hypertension Qualified Code(s): I10 - Essential (primary) hypertension 7) Mitral regurgitation. - Plan Patient reportedly with allergies JEFERSON-I, nifedipine, possibly betablockers but not really sure and if so was only a rash. Will try a low dose carvedilol dose. Cardiology pending. ECHO pending. Lasix diuresis Vancomycin IV for cellulitis- resolving, will switch to oral Keflex. DVT Proph: Lovenox pt to undergo cardiac cath on wednesday. possible transfer to [place] for Mitral valve repair/replacement pt doing well, she is on estrogen and progesterone for about 30y and states that it helps her with headaches. she did has menstrual headaches and continued to have headaches after that.this has been the only thing that has worked for her. I did explain to her the risk of blood clots and CV risk factors. she does not want to stop or taper her meds. will change her lasix to po in am. 09/23 will change po to iv abx for now. will change her lasix to po today. she is going for cardiac cath in am. 09/24 pt undergoing cardiac cath. no intervention. she will have to be transferred to [place] per cardiology for her MR.
[2019-09-25] MEDS: Benzonatate 100 MG CAP PO PRN (20:04)
[2019-09-25] MEDS: Famotidine 20 MG TAB PO SCH (20:04)
[2019-09-26 05:09] LABS: Anion Gap 13 mmol/L (10-20); BUN (Urea Nitrogen) 23 mg/dL (9.8-20.1); Calc. Creatinine Clearance 37 mL/min (70-130); Calcium 8.6 mg/dL (7.8-10.44); Carbon Dioxide 23 mmol/L (23-31); Chloride 101 mmol/L (98-107); Estimated GFR-MDRD 66; Glucose 104 mg/dL (83-110); Sodium 133 mmol/L (136-145)
[2019-09-26] MEDS: Aspirin Chewable 81 MG TAB PO SCH (08:45)
[2019-09-26] MEDS: Carvedilol 3.125 MG TAB PO SCH ×2 (08:45→17:04)
[2019-09-26] MEDS: cefTRIAXone\\ROCEPHIN 1 GM in Sodium Chloride 0.9% 100 ML IVPB SCH (08:45)
[2019-09-26] MEDS: Furosemide 40 MG TAB PO SCH (08:45)
[2019-09-26] MEDS: medroxyPROGESTERone Acetate 5 MG TAB PO SCH (08:46)
[2019-09-26] MEDS: Enoxaparin Sodium 30 MG/0.3 ML SYRINGE SC SCH (08:46)
[2019-09-26] MEDS: Benzonatate 100 MG CAP PO PRN (08:46)
[2019-09-26] MEDS ORDERED: Furosemide 40 MG/4 ML VIAL IVP SCH (10:45)
--- NOTE | 2019-09-26 11:01 | PRG ---
DATE OF SERVICE: 09/26/2019 SUBJECTIVE: Ms. Guerrero is doing better. She underwent coronary angiography yesterday and was found to have a diagonal disease only. She does have severe mitral regurgitation. Her main complaint today is rash and cough. Her rash has been noted 4 weeks prior to presentation. She also complains of a cough that also occurred 4 weeks prior to presentation. OBJECTIVE: VITAL SIGNS: Blood pressure 141/91, pulse 85, temperature 97.7. LUNGS: Crackles noted bilaterally. HEART: Regular rate and rhythm. ABDOMEN: Soft, nontender, and nondistended. EXTREMITIES: No edema. PERTINENT LABORATORY DATA: Creatinine 0.83. BNP dated 09/20. IMPRESSION: 1. Severe mitral regurgitation. 2. Coronary artery disease. 3. Rash. 4. Cough. RECOMMENDATIONS: Continue Coreg in addition to aspirin. She is not on JEFERSON inhibitor or ARB that may precipitate cough. She does have crackles noted bilaterally and may be related to a left-sided failure. Recommend 40 mg IV Lasix now and re-evaluate. After her symptoms have improved, may need to coordinate transfer versus outpatient followup for mitral valve replacement. At this point, she appears stable. Job ID: [id number]
[2019-09-26] MEDS: Famotidine 20 MG TAB PO SCH (20:52)
[2019-09-26] MEDS: Guaifenesin DM 100-10/5 ML UDCUP PO PRN (20:56)
[2019-09-26 23:00] VITALS: BP 126/79; TEMP 97.8
== END 2019-09-26 23:45 | disposition short-term general hospital (02) | DRG 286 ==
LOC: ERS 10:31 → ERHOLD 14:03 → 2NO 17:32
PROVIDERS: ADMIT Emergency Medicine; ATTEND Emergency Medicine
PROC: 4A023N7 Measurement of Cardiac Sampling and Pressure, Left Heart, Percutaneous Approach (ICD-10-PCS; principal; 2019-09-25)
PROC: B2151ZZ Fluoroscopy of Left Heart using Low Osmolar Contrast (ICD-10-PCS; 2019-09-25)
PROC: B2111ZZ Fluoroscopy of Multiple Coronary Arteries using Low Osmolar Contrast (ICD-10-PCS; 2019-09-25)
DX: I11.0 Hypertensive heart disease with heart failure (principal); I51.1 Rupture of chordae tendineae, not elsewhere classified; L03.115 Cellulitis of right lower limb; I50.33 Acute on chronic diastolic (congestive) heart failure; I34.0 Nonrheumatic mitral (valve) insufficiency; I34.1 Nonrheumatic mitral (valve) prolapse; I83.015 Varicose veins of right lower extremity with ulcer other part of foot; L97.519 Non-pressure chronic ulcer of other part of right foot with unspecified severity; R01.1 Cardiac murmur, unspecified; I25.10 Atherosclerotic heart disease of native coronary artery without angina pectoris; R79.89 Other specified abnormal findings of blood chemistry; R21 Rash and other nonspecific skin eruption; R05 Cough; Z79.82 Long term (current) use of aspirin; Z79.899 Other long term (current) drug therapy; Z88.8 Allergy status to other drugs, medicaments and biological substances; Z91.018 Allergy to other foods
CPT/HCPCS: 36415; 71045; 80048; 80053; 80061; 82553; 83605; 83735; 83880; 84443; 84484; 85025; 87040; 93005; 93306; 93458; 93798; 96365; 96366; 96367; 96375; 99152; C1769; J0692; J0696; J1644; J1650; J1940; J2250; J3010; J3370; J3490; J7050; Q9967

== ENCOUNTER 2023-09-25 19:50 | Inpatient (IN) | payer BC, MEDICARE ==
[2023-09-25 21:12] LABS: #Basophils 0.1 thou/uL (0.0-0.2); #Eosinphils 0.1 thou/uL (0.0-0.7); #Monocytes 0.8 thou/uL (0.11-0.59); #Neutrophils 5.1 thou/uL (1.40-6.50); %Basophils 0.7 % (0.0-1.0); %Eosinophils 0.7 % (0.0-10.0); %Lymphocytes 19.7 % (21.0-51.0); %Monocytes 10.1 % (0.0-10.0); %Neutrophils 68.5 % (42.0-75.0); Hematocrit 37.2 % (36.0-47.0); Hemoglobin 13.2 g/dL (12.0-16.0); Mean Corpuscular HGB CONC 35.5 g/dL (32.0-36.0); Mean Corpuscular Hemoglobin 30.5 pg (27.0-31.0); Mean Corpuscular Volume 85.9 fl (78.0-98.0); Mean Platelet Volume 12.9 fL (7.4-10.4); Platelet Count 101 10x3/uL (130-400); RBC Distribution Width 14.6 % (11.5-14.5); Red Blood Cell (RBC) Count 4.33 mill/uL (4.20-5.40); White Blood Cell (WBC) Count 7.4 10x3/uL (4.8-10.8)
[2023-09-25 21:37] LABS: ALT (SGPT) 27 U/L (8-55); AST (SGOT) 48 U/L (5-34); Albumin 2.8 g/dL (3.4-4.8); Alkaline Phosphatase 141 U/L (40-110); Anion Gap 18 mmol/L (10-20); BUN (Urea Nitrogen) 54 mg/dL (9.8-20.1); Bilirubin, Total 2.7 mg/dL (0.2-1.2); Calc. Creatinine Clearance 0 mL/min (70-130); Calcium 8.6 mg/dL (7.8-10.44); Carbon Dioxide 24 mmol/L (23-31); Chloride 88 mmol/L (98-107); Estimated GFR 20; Globulin 3.3 g/dL (2.4-3.5); Glucose 132 mg/dL (83-110); Potassium 3.2 mmol/L (3.5-5.1); Protein, Total 6.1 g/dL (5.8-8.1); Sodium 127 mmol/L (136-145)
[2023-09-25 21:39] LABS: Troponin I 0.052 ng/mL (< 0.028)
[2023-09-25] MEDS ORDERED: Ondansetron PF 4 MG/2 ML Vial IVP PRN (23:45)
[2023-09-25] MEDS ORDERED: Acetaminophen 325 MG TAB PO PRN (23:45)
[2023-09-25] MEDS ORDERED: Ondansetron ODT 4 MG TAB SL PRN (23:45)
[2023-09-26] MEDS ORDERED: Ondansetron ODT 4 MG TAB PO PRN (01:09)
[2023-09-26] MEDS ORDERED: Acetaminophen 325 MG TAB PO PRN (01:09)
[2023-09-26 01:21] LABS: Troponin I 0.047 ng/mL (< 0.028)
[2023-09-26] MEDS ORDERED: Acetaminophen 500 MG TAB ONE (01:24)
[2023-09-26] MEDS ORDERED: Boostrix 0.5 ML (Tdap) VIAL (>/=7 yrs of age) ONE (01:25)
[2023-09-26] MEDS ORDERED: Bacitracin 1 PK ONE (01:26)
[2023-09-26 04:03] LABS: #Basophils 0.1 thou/uL (0.0-0.2); #Eosinphils 0.1 thou/uL (0.0-0.7); #Monocytes 1.1 thou/uL (0.11-0.59); #Neutrophils 5.7 thou/uL (1.40-6.50); %Basophils 0.6 % (0.0-1.0); %Eosinophils 1.4 % (0.0-10.0); %Lymphocytes 15.4 % (21.0-51.0); %Neutrophils 69.4 % (42.0-75.0); Hematocrit 33.2 % (36.0-47.0); Hemoglobin 11.3 g/dL (12.0-16.0); Mean Corpuscular Hemoglobin 30.1 pg (27.0-31.0); Mean Corpuscular Volume 88.3 fl (78.0-98.0); Mean Platelet Volume 13.5 fL (7.4-10.4); RBC Distribution Width 14.6 % (11.5-14.5); Red Blood Cell (RBC) Count 3.76 mill/uL (4.20-5.40); White Blood Cell (WBC) Count 8.1 10x3/uL (4.8-10.8)
[2023-09-26 04:05] LABS: Platelet Count 87 10x3/uL (130-400)
[2023-09-26 04:23] LABS: Troponin I 0.052 ng/mL (< 0.028)
[2023-09-26] MEDS: Lactated Ringer's 1,000 ML IV SCH (04:23)
[2023-09-26 04:26] LABS: ALT (SGPT) 23 U/L (8-55); AST (SGOT) 40 U/L (5-34); Albumin 2.2 g/dL (3.4-4.8); Alkaline Phosphatase 128 U/L (40-110); Anion Gap 18 mmol/L (10-20); BUN (Urea Nitrogen) 52 mg/dL (9.8-20.1); Bilirubin, Total 1.5 mg/dL (0.2-1.2); Calc. Creatinine Clearance 0 mL/min (70-130); Calcium 7.5 mg/dL (7.8-10.44); Carbon Dioxide 22 mmol/L (23-31); Chloride 96 mmol/L (98-107); Estimated GFR 25; Globulin 2.9 g/dL (2.4-3.5); Glucose 103 mg/dL (83-110); Protein, Total 5.1 g/dL (5.8-8.1); Sodium 133 mmol/L (136-145)
[2023-09-26 04:28] LABS: Critical Call Chemistry nur.lh12@0428; Potassium 2.6 mmol/L (3.5-5.1)
[2023-09-26 05:44] VITALS: BMI 13.7
[2023-09-26] MEDS: Potassium Chloride 20 MEQ TAB PO SCH (06:36)
[2023-09-26] MEDS: Potassium Chloride 10 MEQ in Premix 1 BAG IVPB SCH (06:41)
[2023-09-26 08:33] LABS: Magnesium 1.6 mg/dL (1.6-2.6)
[2023-09-26] MEDS: Famotidine 20 MG TAB PO SCH (10:35)
[2023-09-26] MEDS: Magnesium 2 GM/50 ML(in water) 2 GM in Premix 1 BAG IVPB SCH (14:03)
[2023-09-27 04:47] LABS: #Basophils 0.1 thou/uL (0.0-0.2); #Eosinphils 0.2 thou/uL (0.0-0.7); #Monocytes 1.3 thou/uL (0.11-0.59); #Neutrophils 4.3 thou/uL (1.40-6.50); %Basophils 0.8 % (0.0-1.0); %Eosinophils 3.2 % (0.0-10.0); %Lymphocytes 18.4 % (21.0-51.0); %Monocytes 17.3 % (0.0-10.0); %Neutrophils 60.2 % (42.0-75.0); Hematocrit 34.4 % (36.0-47.0); Hemoglobin 11.4 g/dL (12.0-16.0); Mean Corpuscular HGB CONC 33.1 g/dL (32.0-36.0); Mean Corpuscular Hemoglobin 30.2 pg (27.0-31.0); Mean Platelet Volume 13.7 fL (7.4-10.4); RBC Distribution Width 14.9 % (11.5-14.5); Red Blood Cell (RBC) Count 3.78 mill/uL (4.20-5.40); White Blood Cell (WBC) Count 7.2 10x3/uL (4.8-10.8)
[2023-09-27 04:55] LABS: Platelet Count 80 10x3/uL (130-400)
[2023-09-27 05:16] LABS: ALT (SGPT) 24 U/L (8-55); AST (SGOT) 40 U/L (5-34); Albumin 2.4 g/dL (3.4-4.8); Alkaline Phosphatase 140 U/L (40-110); Anion Gap 12 mmol/L (10-20); BUN (Urea Nitrogen) 42 mg/dL (9.8-20.1); Bilirubin, Total 1.5 mg/dL (0.2-1.2); Calc. Creatinine Clearance 14 mL/min (70-130); Calcium 8.1 mg/dL (7.8-10.44); Carbon Dioxide 23 mmol/L (23-31); Chloride 103 mmol/L (98-107); Estimated GFR 31; Globulin 2.8 g/dL (2.4-3.5); Glucose 81 mg/dL (83-110); Potassium 3.5 mmol/L (3.5-5.1); Protein, Total 5.2 g/dL (5.8-8.1); Sodium 134 mmol/L (136-145)
[2023-09-27] MEDS: Atorvastatin Calcium 40 MG TAB PO SCH (11:17)
[2023-09-27] MEDS: Lactated Ringer's 1,000 ML IV SCH (11:17)
[2023-09-27] MEDS: Clopidogrel Bisulfate 75 MG TAB PO SCH (11:18)
[2023-09-28 04:53] LABS: Anion Gap 11 mmol/L (10-20); BUN (Urea Nitrogen) 41 mg/dL (9.8-20.1); Calc. Creatinine Clearance 14 mL/min (70-130); Calcium 8.2 mg/dL (7.8-10.44); Carbon Dioxide 26 mmol/L (23-31); Chloride 103 mmol/L (98-107); Estimated GFR 30; Glucose 100 mg/dL (83-110); Potassium 4.1 mmol/L (3.5-5.1); Sodium 136 mmol/L (136-145)
[2023-09-28 08:09] LABS: Free T4 (Free Thyroxine) 0.95 ng/dL (0.70-1.48)
[2023-09-29 06:06] LABS: Anion Gap 11 mmol/L (10-20); BUN (Urea Nitrogen) 29 mg/dL (9.8-20.1); Calc. Creatinine Clearance 21 mL/min (70-130); Calcium 7.9 mg/dL (7.8-10.44); Carbon Dioxide 26 mmol/L (23-31); Chloride 103 mmol/L (98-107); Estimated GFR 51; Glucose 84 mg/dL (83-110); Potassium 4.3 mmol/L (3.5-5.1); Sodium 136 mmol/L (136-145)
[2023-09-29 10:41] LABS: Hematocrit 32.3 % (36.0-47.0); Hemoglobin 10.7 g/dL (12.0-16.0); Manual Diff?? YES; Mean Corpuscular HGB CONC 33.1 g/dL (32.0-36.0); Mean Corpuscular Hemoglobin 30.7 pg (27.0-31.0); Mean Corpuscular Volume 92.8 fl (78.0-98.0); Mean Platelet Volume 13.1 fL (7.4-10.4); RBC Distribution Width 15.5 % (11.5-14.5); Red Blood Cell (RBC) Count 3.48 mill/uL (4.20-5.40); White Blood Cell (WBC) Count 4.7 10x3/uL (4.8-10.8)
[2023-09-29 10:51] LABS: Delete Auto Diff?? YES; Platelet Count 78 10x3/uL (130-400)
[2023-09-29 11:22] LABS: Anisocytosis MARKED = >30 cells HPF (0-5); Band 9 % (5-11); Burr Cells MODERATE= 6-15 cells HPF (0-1); CellaVision Operator ID LAB.KW3; Large Platelets 47.5 % (0-5); Lymphocytes 11 % (21-51); Monocytes 12 % (0-10); Neutrophil 68 % (42-75); Platelet Adequacy Comment Platelets Decreased; Poikilocytosis MODERATE=16-30 cells HPF (0-5); Schistocytes SLIGHT = 2-5 cells HPF (0-1); Total Cell Count 99
[2023-09-29] MEDS: Benzonatate 100 MG CAP PO PRN (16:02)
[2023-09-29 17:10] LABS: Influenza A by NAA DETECTED (NotDetected); Influenza B by NAA Not Detected (NotDetected); RSV by NAA Not Detected (NotDetected); SARS-CoV-2 NAA Rapid Test Not Detected (NotDetected)
[2023-09-30 05:20] LABS: Hemoglobin 11.1 g/dL (12.0-16.0); Manual Diff?? YES; Mean Corpuscular HGB CONC 32.6 g/dL (32.0-36.0); Mean Corpuscular Hemoglobin 30.3 pg (27.0-31.0); Mean Corpuscular Volume 92.9 fl (78.0-98.0); Platelet Count 107 10x3/uL (130-400); RBC Distribution Width 15.6 % (11.5-14.5); Red Blood Cell (RBC) Count 3.66 mill/uL (4.20-5.40); White Blood Cell (WBC) Count 6.3 10x3/uL (4.8-10.8)
[2023-09-30 05:31] LABS: Anion Gap 11 mmol/L (10-20); BUN (Urea Nitrogen) 29 mg/dL (9.8-20.1); Calc. Creatinine Clearance 24 mL/min (70-130); Calcium 7.9 mg/dL (7.8-10.44); Carbon Dioxide 22 mmol/L (23-31); Chloride 104 mmol/L (98-107); Estimated GFR 59; Glucose 113 mg/dL (83-110); Potassium 4.1 mmol/L (3.5-5.1); Sodium 133 mmol/L (136-145)
[2023-09-30 05:33] LABS: Delete Auto Diff?? YES
[2023-09-30 06:05] LABS: Anisocytosis SLIGHT = 6-15 cells HPF (0-5); Band 14 % (5-11); CellaVision Operator ID lab.sh2; Lymphocytes 8 % (21-51); Monocytes 5 % (0-10); Neutrophil 72 % (42-75); Ovalocytes SLIGHT = 2-5 cells HPF (0-1); Platelet Adequacy Comment Platelets Decreased; Total Cell Count 100
[2023-09-30] MEDS: Oseltamivir 6 MG/ML ORAL SUSP PO SCH (09:06)
[2023-09-30] MEDS: GUAIFENESIN SF SOLN 200 MG/10 ML UDCUP PO PRN (09:07)
[2023-10-01 05:21] LABS: Hematocrit 30.7 % (36.0-47.0); Manual Diff?? YES; Mean Corpuscular HGB CONC 32.6 g/dL (32.0-36.0); Mean Corpuscular Hemoglobin 30.1 pg (27.0-31.0); Mean Corpuscular Volume 92.5 fl (78.0-98.0); Mean Platelet Volume 11.9 fL (7.4-10.4); Platelet Count 132 10x3/uL (130-400); RBC Distribution Width 16.1 % (11.5-14.5); Red Blood Cell (RBC) Count 3.32 mill/uL (4.20-5.40); White Blood Cell (WBC) Count 5.5 10x3/uL (4.8-10.8)
[2023-10-01 05:46] LABS: Anion Gap 12 mmol/L (10-20); BUN (Urea Nitrogen) 30 mg/dL (9.8-20.1); Calc. Creatinine Clearance 24 mL/min (70-130); Calcium 7.7 mg/dL (7.8-10.44); Carbon Dioxide 26 mmol/L (23-31); Chloride 102 mmol/L (98-107); Estimated GFR 60; Glucose 107 mg/dL (83-110); Potassium 4.5 mmol/L (3.5-5.1); Sodium 135 mmol/L (136-145)
[2023-10-01 06:05] LABS: Delete Auto Diff?? YES
[2023-10-01 08:13] LABS: Anisocytosis MARKED = >30 cells HPF (0-5); Band 12 % (5-11); Burr Cells SLIGHT = 2-5 cells HPF (0-1); CellaVision Operator ID LAB.KW3; Elliptocytes SLIGHT = 2-5 cells HPF (0-1); Eosinophils 1 % (0-10); Large Platelets 18.3 % (0-5); Lymphocytes 10 % (21-51); Microcytosis MODERATE=15-30 cells HPF (0-5); Monocytes 13 % (0-10); Neutrophil 62 % (42-75); Platelet Adequacy Comment Platelets Normal; Poikilocytosis MARKED = >30 cells HPF (0-5); Polychromasia SLIGHT = 2-3 cells HPF (0-2); Schistocytes SLIGHT = 2-5 cells HPF (0-1); Total Cell Count 82
[2023-10-01] MEDS: Benzonatate 100 MG CAP PO SCH (09:00)
[2023-10-01] MEDS: Bacitracin Zinc Ointment 30 gm TUBE TOP SCH (14:31)
[2023-10-01] MEDS ORDERED: medroxyPROGESTERone Acetate 5 MG TAB PO SCH (15:15)
[2023-10-01] MEDS: Carvedilol 3.125 MG TAB PO SCH (18:32)
[2023-10-02 05:09] LABS: #Eosinphils 0.2 thou/uL (0.0-0.7); #Monocytes 0.8 thou/uL (0.11-0.59); #Neutrophils 2.7 thou/uL (1.40-6.50); %Basophils 0.4 % (0.0-1.0); %Eosinophils 3.7 % (0.0-10.0); %Monocytes 16.1 % (0.0-10.0); %Neutrophils 55.8 % (42.0-75.0); Hematocrit 29.6 % (36.0-47.0); Hemoglobin 9.7 g/dL (12.0-16.0); Mean Corpuscular HGB CONC 32.8 g/dL (32.0-36.0); Mean Corpuscular Hemoglobin 30.1 pg (27.0-31.0); Mean Corpuscular Volume 91.9 fl (78.0-98.0); Mean Platelet Volume 11.6 fL (7.4-10.4); Platelet Count 135 10x3/uL (130-400); RBC Distribution Width 16.3 % (11.5-14.5); Red Blood Cell (RBC) Count 3.22 mill/uL (4.20-5.40); White Blood Cell (WBC) Count 4.9 10x3/uL (4.8-10.8)
[2023-10-02 05:26] LABS: Anion Gap 11 mmol/L (10-20); BUN (Urea Nitrogen) 27 mg/dL (9.8-20.1); Calc. Creatinine Clearance 28 mL/min (70-130); Calcium 7.5 mg/dL (7.8-10.44); Carbon Dioxide 24 mmol/L (23-31); Chloride 103 mmol/L (98-107); Estimated GFR 70; Glucose 123 mg/dL (83-110); Potassium 3.7 mmol/L (3.5-5.1); Sodium 134 mmol/L (136-145)
[2023-10-02 07:46] VITALS: BP 107/69; TEMP 98
[2023-10-02] MEDS ORDERED: Calcium Gluconate 100 MG/ML 10 ML IVPB SCH (08:30)
[2023-10-02] MEDS: Potassium Chloride 20 MEQ TAB PO SCH (09:10)
[2023-10-02] MEDS: Calcium Carbonate + Vit D 250 MG TAB PO SCH (09:26)
[2023-10-02] MEDS ORDERED: CALCIUM GLUC 1 GM/NS 50 ML 1 GM in Premix 1 BAG IVPB SCH ×2 (10:00→10:15)
== END 2023-10-02 10:49 | DRG 640 ==
LOC: ERS 19:50 → ERHOLD 23:46 → 2SE 09-26 05:06 → OBSVTOIN 09-26 08:09
PROVIDERS: ADMIT Student in an Organized Health Care Education/Training Program; ATTEND Hospitalist
DX: E86.0 Dehydration (principal); E43 Unspecified severe protein-calorie malnutrition; N17.0 Acute kidney failure with tubular necrosis; Z68.1 Body mass index [BMI] 19.9 or less, adult; N17.9 Acute kidney failure, unspecified; I95.1 Orthostatic hypotension; E87.1 Hypo-osmolality and hyponatremia; E87.6 Hypokalemia; E80.6 Other disorders of bilirubin metabolism; L89.151 Pressure ulcer of sacral region, stage 1; W19.XXXA Unspecified fall, initial encounter; E78.5 Hyperlipidemia, unspecified; S00.03XA Contusion of scalp, initial encounter; S00.83XA Contusion of other part of head, initial encounter; I35.0 Nonrheumatic aortic (valve) stenosis; D69.6 Thrombocytopenia, unspecified; J10.1 Influenza due to other identified influenza virus with other respiratory manifestations; Z91.81 History of falling; Z79.82 Long term (current) use of aspirin; Z79.899 Other long term (current) drug therapy
CPT/HCPCS: 0241U; 36415; 70450; 70486; 71045; 72125; 80048; 80053; 82533; 83735; 84439; 84443; 84481; 84484; 85025; 90471; 90715; 93005; 93306; 96360; 96361; 97139; J3475; J3480; J7120

== ENCOUNTER 2024-07-19 11:33 | Inpatient (IN) | payer MEDICARE ==
[2024-07-19] MEDS ORDERED: EPINEPHrine 1 MG/10 ML Abboject SYRINGE ONE (12:01)
[2024-07-19] MEDS ORDERED: NOREPINEPHRINE 8 MG/250 ML-D5W 250 ML ONE (12:09)
[2024-07-19] MEDS ORDERED: Sodium Chloride 0.9% 100 ML ONE (12:10)
[2024-07-19] MEDS ORDERED: CEFAZOLIN 2 GM VIAL ONE (12:10)
[2024-07-19] MEDS ORDERED: Cefepime 2 GM VIAL ONE (12:11)
[2024-07-19 12:46] LABS: Bacteria/HPF 4+ HPF (None Seen); Bilirubin Negative (Negative); Blood, Urine 3+ (Negative); CAUTI Indications for Culture Alt mental st,lethar; Clarity Extra Turbid (Clear); Glucose, Urine (Dipstick) Normal (Negative); Ketone, Urine Negative (Negative); Leukocyte 500 Leu/uL (Negative); Nitrite Negative (Negative); Protein, Urine (Dipstick) 200 mg/dL (Neg-Trace); Specific Gravity, Urine 1.011 (1.002-1.036); Squamous Epithelial 0-3 HPF (0-3); Transitional Epithelial 0-3 HPF (None Seen); WBC/HPF Greater than 50 HPF (0-3)
[2024-07-19 12:51] LABS: Urine Culture Reflex Yes Yes
[2024-07-19 12:53] LABS: Troponin I 0.094 ng/mL (< 0.028)
[2024-07-19 13:12] LABS: CK (CPK) 14431 U/L (29-168)
[2024-07-19 13:15] LABS: #Basophils Less than 0.03 10x3/uL (0.0-0.2); #Eosinophils Less than 0.03 10x3/uL (0.0-0.7); %Basophils 0.1 % (0.0-1.0); %Lymphocytes 5.3 % (21.0-51.0); %Monocytes 4.4 % (0.0-10.0); %Neutrophils 89.8 % (42.0-75.0); Hematocrit 26.1 % (36.0-47.0); Hemoglobin 8.1 g/dL (12.0-16.0); Mean Corpuscular Hemoglobin 25.1 pg (27.0-31.0); Mean Corpuscular Volume 80.8 fL (78.0-98.0); Platelet Count 93 10x3/uL (130-400); RBC Distribution Width 18.8 % (11.5-14.5); Red Blood Cell (RBC) Count 3.23 mill/uL (4.20-5.40)
[2024-07-19 13:17] LABS: ALT (SGPT) 154 U/L (8-55); AST (SGOT) 480 U/L (5-34); Albumin 2.1 g/dL (3.4-4.8); Alkaline Phosphatase 142 U/L (40-110); Anion Gap 19 mmol/L (10-20); BUN (Urea Nitrogen) 64 mg/dL (9.8-20.1); Bilirubin, Total 4.2 mg/dL (0.2-1.2); Calc. Creatinine Clearance 0 mL/min (70-130); Calcium 6.7 mg/dL (7.8-10.44); Carbon Dioxide 10 mmol/L (23-31); Chloride 105 mmol/L (98-107); Estimated GFR 23; Globulin 2.8 g/dL (2.4-3.5); Glucose 286 mg/dL (83-110); Magnesium 2.7 mg/dL (1.6-2.6); Potassium 5.9 mmol/L (3.5-5.1); Protein, Total 4.9 g/dL (5.8-8.1); Sodium 128 mmol/L (136-145)
[2024-07-19 13:20] LABS: Anisocytosis MODERATE=16-30 cells HPF (0-5); Burr Cells SLIGHT = 2-5 cells HPF (0-1); Macrocytosis SLIGHT = 6-15 cells HPF (0-5); Platelet Adequacy Comment Platelets Decreased; Poikilocytosis MARKED = >30 cells HPF (0-5); Polychromasia SLIGHT = 2-3 cells HPF (0-2); Schistocytes SLIGHT = 2-5 cells HPF (0-1)
[2024-07-19] MEDS ORDERED: Vancomycin 1 GM/200 ML (FROZEN) BAG ONE (14:18)
[2024-07-19] MEDS: Vancomycin 1 GM in Premix 1 BAG IVPB SCH (15:38)
[2024-07-19] MEDS ORDERED: Sodium Chloride 0.9% 1,000 ML IV SCH (15:45)
[2024-07-19] MEDS: Hydrocortisone Sod Succ/PF 100 mg/2 ml Vial IVP SCH ×2 (15:54→21:19)
[2024-07-19] MEDS: Calcium Chloride 13.6 MEQ in Sodium Chloride 0.9% 100 ML IVPB SCH (16:13)
[2024-07-19] MEDS: Sodium Bicarb 50 mEq/50 ML VIAL IVP SCH (16:27)
[2024-07-19] MEDS: Sodium Bicarbonate 150 MEQ in Dextrose 5% in Water 1,000 ML IV SCH (16:45)
[2024-07-19] MEDS ORDERED: Vancomycin Dose by Levels Sliding Scale (Wt <71) FS SCH (17:00)
[2024-07-19 18:59] LABS: #Basophils Less than 0.03 10x3/uL (0.0-0.2); #Eosinophils Less than 0.03 10x3/uL (0.0-0.7); %Basophils 0.2 % (0.0-1.0); %Lymphocytes 2.4 % (21.0-51.0); %Monocytes 2.5 % (0.0-10.0); %Neutrophils 94.6 % (42.0-75.0); Hematocrit 27.6 % (36.0-47.0); Mean Corpuscular HGB CONC 32.6 g/dL (32.0-36.0); Mean Corpuscular Hemoglobin 25.6 pg (27.0-31.0); Mean Corpuscular Volume 78.6 fL (78.0-98.0); Platelet Count 134 10x3/uL (130-400); RBC Distribution Width 18.9 % (11.5-14.5); Red Blood Cell (RBC) Count 3.51 mill/uL (4.20-5.40)
[2024-07-19 19:13] LABS: Lactic Acid 2.72 mmol/L (0.5-2.2)
[2024-07-19 19:22] LABS: Troponin I 0.118 ng/mL (< 0.028)
[2024-07-19 19:23] LABS: Troponin I 0.099 ng/mL (< 0.028)
[2024-07-19] MEDS ORDERED: Vancomycin 1.5 GM in Sodium Chloride 0.9% 250 ML 300 ML IVPB SCH (21:00)
[2024-07-19 21:04] LABS: Anion Gap 17 mmol/L (10-20); BUN (Urea Nitrogen) 66 mg/dL (9.8-20.1); Calc. Creatinine Clearance 13 mL/min (70-130); Calcium 7.5 mg/dL (7.8-10.44); Carbon Dioxide 14 mmol/L (23-31); Chloride 105 mmol/L (98-107); Estimated GFR 22; Glucose 198 mg/dL (83-110); Sodium 131 mmol/L (136-145)
[2024-07-19] MEDS: Heparin 5,000 UNITS/ML VIAL SC SCH (21:19)
[2024-07-19] MEDS: NOREPINEPHRINE 8 MG/250 ML-D5W 250 ML IVPB SCH (21:50)
[2024-07-19 21:56] LABS: Lactic Acid 2.79 mmol/L (0.5-2.2)
[2024-07-20] MEDS ORDERED: Vasopressin 20 UNITS in Sodium Chloride 0.9% 50 ML IV SCH (02:45)
[2024-07-20] MEDS: Albumin 25% 25 GM (100 mL) BOT IVPB SCH (02:56)
[2024-07-20] MEDS: Sodium Bicarb 50 MEQ/50 ML Abboject 8.4% SYRINGE IVP SCH (02:56)
[2024-07-20] MEDS: Vasopressin In 0.9 % NaCl 40 UNIT in Premix 1 BAG IV SCH (03:10)
[2024-07-20] MEDS ORDERED: CALCIUM GLUC 1 GM/NS 50 ML 1 GM in Premix 1 BAG IVPB SCH (03:30)
[2024-07-20] MEDS: CALCIUM GLUC 1 GM/NS 50 ML 1 GM in Premix 1 BAG IVPB SCH (03:34)
[2024-07-20 05:50] LABS: #Basophils Less than 0.03 10x3/uL (0.0-0.2); #Eosinophils Less than 0.03 10x3/uL (0.0-0.7); %Basophils 0.1 % (0.0-1.0); %Lymphocytes 2.5 % (21.0-51.0); %Monocytes 3.4 % (0.0-10.0); %Neutrophils 93.4 % (42.0-75.0); Hematocrit 26.9 % (36.0-47.0); Hemoglobin 8.7 g/dL (12.0-16.0); Mean Corpuscular HGB CONC 32.3 g/dL (32.0-36.0); Mean Corpuscular Volume 77.3 fL (78.0-98.0); Platelet Count 153 10x3/uL (130-400); RBC Distribution Width 19.7 % (11.5-14.5); Red Blood Cell (RBC) Count 3.48 mill/uL (4.20-5.40)
[2024-07-20 06:26] LABS: CK (CPK) 9896 U/L (29-168)
[2024-07-20 06:27] LABS: ALT (SGPT) 224 U/L (8-55); AST (SGOT) 619 U/L (5-34); Albumin 2.9 g/dL (3.4-4.8); Alkaline Phosphatase 160 U/L (40-110); Anion Gap 21 mmol/L (10-20); BUN (Urea Nitrogen) 63 mg/dL (9.8-20.1); Bilirubin, Total 5.1 mg/dL (0.2-1.2); Calc. Creatinine Clearance 14 mL/min (70-130); Calcium 7.5 mg/dL (7.8-10.44); Carbon Dioxide 17 mmol/L (23-31); Chloride 101 mmol/L (98-107); Estimated GFR 22; Glucose 284 mg/dL (83-110); Potassium 4.6 mmol/L (3.5-5.1); Protein, Total 5.9 g/dL (5.8-8.1); Sodium 134 mmol/L (136-145)
[2024-07-20] MEDS: Sodium Chloride 0.9% 500 ML IV SCH ×2 (09:38→17:22)
[2024-07-20] MEDS: Cefepime 1 GM in Sodium Chloride 0.9% 100 ML IVPB SCH (09:41)
[2024-07-20 14:20] LABS: Vancomycin, Trough 11.5 ug/mL
[2024-07-20 14:27] LABS: Actual Bicarbonate (HCO3a) 21.1 mEq/L (22-28); Base Excess (BEa) -1.9 mEq/L (-2.0 to +3.0); CO2 Tension 29.2 mmHg (35.0-45.0); Calcium, Ionized (arterial) 0.87 mmol/L (1.12-1.30); Carboxyhemoglobin (COHb) 1.2 gm% (0.0-3.0); Hematocrit-ABG 26 % (36.0-47.0); Hemoglobin (Hb) 8.9 g/dL (12.0-16.0); O2 Tension (PaO2), arterial 76.3 mmHg (> 60.0); Potassium - ABG Lab 3.62 mmol/L (3.70-5.30); pH, Arterial 7.477 (7.35-7.45)
[2024-07-20] MEDS: Vancomycin HCl 750 MG in Sodium Chloride 0.9% 250 ML 250 ML IVPB SCH (17:00)
[2024-07-21] MEDS: Ondansetron PF 4 MG/2 ML Vial IVP PRN (02:58)
[2024-07-21] MEDS: fentaNYL 50 mcg/mL 1 mL Vial SLOW IVP SCH (04:56)
[2024-07-21 05:05] LABS: #Basophils Less than 0.03 10x3/uL (0.0-0.2); #Eosinophils Less than 0.03 10x3/uL (0.0-0.7); %Basophils 0.1 % (0.0-1.0); %Lymphocytes 3.4 % (21.0-51.0); %Neutrophils 90.6 % (42.0-75.0); Hematocrit 27.1 % (36.0-47.0); Hemoglobin 8.7 g/dL (12.0-16.0); Mean Corpuscular HGB CONC 32.1 g/dL (32.0-36.0); Mean Corpuscular Volume 77.9 fL (78.0-98.0); Platelet Count 128 10x3/uL (130-400); RBC Distribution Width 20.4 % (11.5-14.5); Red Blood Cell (RBC) Count 3.48 mill/uL (4.20-5.40)
[2024-07-21 05:49] LABS: CK (CPK) 5714 U/L (29-168)
[2024-07-21] MEDS: Levothyroxine Sodium 25 MCG TAB PO SCH (06:24)
[2024-07-21 06:30] LABS: ALT (SGPT) 240 U/L (8-55); AST (SGOT) 540 U/L (5-34); Albumin 2.5 g/dL (3.4-4.8); Alkaline Phosphatase 152 U/L (40-110); Anion Gap 18 mmol/L (10-20); BUN (Urea Nitrogen) 49 mg/dL (9.8-20.1); Calc. Creatinine Clearance 10 mL/min (70-130); Calcium 6.5 mg/dL (7.8-10.44); Carbon Dioxide 22 mmol/L (23-31); Chloride 97 mmol/L (98-107); Estimated GFR 33; Globulin 2.8 g/dL (2.4-3.5); Glucose 341 mg/dL (83-110); Magnesium 2.3 mg/dL (1.6-2.6); Potassium 3.2 mmol/L (3.5-5.1); Protein, Total 5.3 g/dL (5.8-8.1); Sodium 134 mmol/L (136-145)
[2024-07-21] MEDS: CALCIUM GLUC 1 GM/NS 50 ML 1 GM in Premix 1 BAG IVPB SCH (07:10)
[2024-07-21] MEDS ORDERED: Electrolyte Replacement Protocol 1 EACH FS SCH (08:15)
[2024-07-21] MEDS ORDERED: Electrolyte Replacement Protocol FS PRN (08:30)
[2024-07-21] MEDS: Insulin Lispro 100 UNIT/ML 10 ML VIAL SC PRN (09:48)
[2024-07-21] MEDS: Potassium Chloride 20 MEQ in Premix 1 BAG IVPB SCH ×2 (09:56→22:12)
[2024-07-21] MEDS: Sodium Chloride 0.9% 500 ML IV SCH (12:50)
[2024-07-21] MEDS: Albumin 25% 25 GM (100 mL) BOT IVPB SCH (12:51)
[2024-07-21 12:57] LABS: Potassium 2.9 mmol/L (3.5-5.1)
[2024-07-21] MEDS: Sodium Chloride 0.9% 1,000 ML IV SCH (13:03)
[2024-07-21] MEDS: Calcium Gluconate 4.6 MEQ in Sodium Chloride 0.9% 100 ML IVPB ONE ×2 (15:58→20:47)
[2024-07-21] MEDS: Sodium Bicarbonate Tab 325 MG TAB PO SCH (16:10)
[2024-07-21] MEDS: Vancomycin HCl 500 MG in Sodium Chloride 0.9% 100 ML IV SCH (16:49)
[2024-07-21 17:55] LABS: Potassium 3.1 mmol/L (3.5-5.1)
[2024-07-21] MEDS: CALCIUM GLUC IVPB SCH (20:48)
[2024-07-21] MEDS: NS 4.6 GM IVPB SCH (20:48)
[2024-07-22 05:16] VITALS: BMI 19.0
[2024-07-22 05:42] LABS: Hemoglobin A1c 5.7 % (4.0-6.0)
[2024-07-22 06:13] LABS: ALT (SGPT) 219 U/L (8-55); AST (SGOT) 404 U/L (5-34); Albumin 2.8 g/dL (3.4-4.8); Alkaline Phosphatase 165 U/L (40-110); Anion Gap 14 mmol/L (10-20); BUN (Urea Nitrogen) 38 mg/dL (9.8-20.1); Bilirubin, Total 5.9 mg/dL (0.2-1.2); CK (CPK) 2773 U/L (29-168); Calc. Creatinine Clearance 26 mL/min (70-130); Calcium 6.7 mg/dL (7.8-10.44); Carbon Dioxide 27 mmol/L (23-31); Chloride 101 mmol/L (98-107); Estimated GFR 46; Globulin 2.8 g/dL (2.4-3.5); Glucose 129 mg/dL (83-110); Magnesium 2.1 mg/dL (1.6-2.6); Potassium 3.9 mmol/L (3.5-5.1); Protein, Total 5.6 g/dL (5.8-8.1); Sodium 138 mmol/L (136-145)
[2024-07-22 07:42] LABS: Hematocrit 27.1 % (36.0-47.0); Hemoglobin 8.6 g/dL (12.0-16.0); Mean Corpuscular HGB CONC 31.7 g/dL (32.0-36.0); Mean Corpuscular Hemoglobin 25.4 pg (27.0-31.0); Mean Corpuscular Volume 79.9 fL (78.0-98.0); Platelet Count 154 10x3/uL (130-400); RBC Distribution Width 20.5 % (11.5-14.5); Red Blood Cell (RBC) Count 3.39 mill/uL (4.20-5.40)
[2024-07-22 08:33] LABS: Band 12 % (5-11); Burr Cells MODERATE= 6-15 cells HPF (0-1); Hypochromia SLIGHT = 6-15 cells HPF (0-5); Large Platelets 2.6 % (0-5); Lymphocytes 2 % (21-51); Microcytosis SLIGHT = 6-15 cells HPF (0-5); Monocytes 1 % (0-10); Neutrophil 85 % (42-75); Nucleated RBC (Manual Ct) 2 % (0); Platelet Adequacy Comment Platelets Normal; Polychromasia SLIGHT = 2-3 cells HPF (0-2); Schistocytes MODERATE= 6-15 cells HPF (0-1); Smudge Cells 1.7 %
[2024-07-22 09:02] LABS: #Basophils Less than 0.03 10x3/uL (0.0-0.2); #Eosinophils Less than 0.03 10x3/uL (0.0-0.7); %Basophils 0.1 % (0.0-1.0); %Lymphocytes 3.2 % (21.0-51.0); %Monocytes 4.4 % (0.0-10.0); %Neutrophils 91.4 % (42.0-75.0)
[2024-07-22] MEDS: Ergocalciferol 1.25 MG(50,000 UNITS) CAP PO SCH (09:06)
[2024-07-22] MEDS: CALCIUM GLUC 1 GM/NS 50 ML 1 GM in Premix 1 BAG IVPB SCH (09:13)
[2024-07-22] MEDS: Cefepime 1 GM VIAL ONE (09:40)
[2024-07-23 04:16] LABS: #Basophils Less than 0.03 10x3/uL (0.0-0.2); #Eosinophils Less than 0.03 10x3/uL (0.0-0.7); %Basophils 0.1 % (0.0-1.0); %Lymphocytes 4.6 % (21.0-51.0); %Monocytes 4.9 % (0.0-10.0); %Neutrophils 89.2 % (42.0-75.0); Hematocrit 27.8 % (36.0-47.0); Hemoglobin 8.8 g/dL (12.0-16.0); Mean Corpuscular HGB CONC 31.7 g/dL (32.0-36.0); Platelet Count 152 10x3/uL (130-400); RBC Distribution Width 21.4 % (11.5-14.5); Red Blood Cell (RBC) Count 3.52 mill/uL (4.20-5.40)
[2024-07-23 04:24] LABS: ALT (SGPT) 212 U/L (8-55); AST (SGOT) 322 U/L (5-34); Albumin 2.7 g/dL (3.4-4.8); Alkaline Phosphatase 159 U/L (40-110); Anion Gap 15 mmol/L (10-20); BUN (Urea Nitrogen) 38 mg/dL (9.8-20.1); Bilirubin, Total 6.3 mg/dL (0.2-1.2); CK (CPK) 1350 U/L (29-168); Calc. Creatinine Clearance 31 mL/min (70-130); Calcium 7.6 mg/dL (7.8-10.44); Carbon Dioxide 25 mmol/L (23-31); Chloride 106 mmol/L (98-107); Estimated GFR 55; Globulin 2.9 g/dL (2.4-3.5); Glucose 152 mg/dL (83-110); Magnesium 2.2 mg/dL (1.6-2.6); Potassium 3.5 mmol/L (3.5-5.1); Protein, Total 5.6 g/dL (5.8-8.1); Sodium 142 mmol/L (136-145)
[2024-07-23] MEDS: Potassium Chloride 20 MEQ TAB PO SCH (09:03)
[2024-07-23] MEDS: Hydrocortisone Sod Succ/PF 100 mg/2 ml Vial IVP SCH (21:28)
[2024-07-23] MEDS: cefTRIAXone\\ROCEPHIN 1 GM in Sodium Chloride 0.9% 100 ML IVPB SCH (21:29)
[2024-07-24 04:53] LABS: #Basophils Less than 0.03 10x3/uL (0.0-0.2); #Eosinophils Less than 0.03 10x3/uL (0.0-0.7); %Basophils 0.1 % (0.0-1.0); %Lymphocytes 5.8 % (21.0-51.0); %Monocytes 6.3 % (0.0-10.0); %Neutrophils 85.8 % (42.0-75.0); Hematocrit 30.6 % (36.0-47.0); Hemoglobin 9.5 g/dL (12.0-16.0); Mean Corpuscular Hemoglobin 25.1 pg (27.0-31.0); Platelet Count 179 10x3/uL (130-400); RBC Distribution Width 22.6 % (11.5-14.5); Red Blood Cell (RBC) Count 3.78 mill/uL (4.20-5.40)
[2024-07-24 05:07] LABS: ALT (SGPT) 204 U/L (8-55); AST (SGOT) 237 U/L (5-34); Albumin 2.9 g/dL (3.4-4.8); Alkaline Phosphatase 163 U/L (40-110); Anion Gap 15 mmol/L (10-20); BUN (Urea Nitrogen) 49 mg/dL (9.8-20.1); Bilirubin, Total 6.2 mg/dL (0.2-1.2); CK (CPK) 846 U/L (29-168); Calc. Creatinine Clearance 30 mL/min (70-130); Calcium 8.2 mg/dL (7.8-10.44); Carbon Dioxide 26 mmol/L (23-31); Chloride 107 mmol/L (98-107); Estimated GFR 55; Globulin 3.2 g/dL (2.4-3.5); Glucose 164 mg/dL (83-110); Magnesium 2.4 mg/dL (1.6-2.6); Potassium 4.1 mmol/L (3.5-5.1); Protein, Total 6.1 g/dL (5.8-8.1); Sodium 144 mmol/L (136-145)
[2024-07-24] MEDS: Sodium Chloride 0.9% 1,000 ML IV SCH (08:39)
[2024-07-24] MEDS: Hydrocortisone Sod Succ/PF 100 mg/2 ml Vial IVP SCH (20:05)
[2024-07-24] MEDS: Heparin 5,000 UNITS/ML VIAL SC SCH (20:05)
[2024-07-25 00:03] LABS: Actual Bicarbonate (HCO3a) 25.1 mEq/L (22-28); Base Excess (BEa) 1.7 mEq/L (-2.0 to +3.0); CO2 Tension 34.8 mmHg (35.0-45.0); Calcium, Ionized (arterial) 1.07 mmol/L (1.12-1.30); Carboxyhemoglobin (COHb) 1.5 gm% (0.0-3.0); Hematocrit-ABG 30 % (36.0-47.0); Hemoglobin (Hb) 10.3 g/dL (12.0-16.0); O2 Tension (PaO2), arterial 88.5 mmHg (> 60.0); Potassium - ABG Lab 3.79 mmol/L (3.70-5.30); pH, Arterial 7.476 (7.35-7.45)
[2024-07-25] MEDS: Furosemide 40 MG (4 mL) VIAL SLOW IVP SCH ×2 (00:33→10:00)
[2024-07-25 06:19] LABS: Hematocrit 32.9 % (36.0-47.0); Hemoglobin 9.6 g/dL (12.0-16.0); Mean Corpuscular HGB CONC 29.2 g/dL (32.0-36.0); Mean Corpuscular Hemoglobin 24.8 pg (27.0-31.0); Platelet Count 202 10x3/uL (130-400); RBC Distribution Width 23.9 % (11.5-14.5); Red Blood Cell (RBC) Count 3.87 mill/uL (4.20-5.40)
[2024-07-25 06:31] LABS: ALT (SGPT) 189 U/L (8-55); AST (SGOT) 163 U/L (5-34); Alkaline Phosphatase 161 U/L (40-110); Anion Gap 20 mmol/L (10-20); BUN (Urea Nitrogen) 52 mg/dL (9.8-20.1); Bilirubin, Total 5.4 mg/dL (0.2-1.2); Calc. Creatinine Clearance 32 mL/min (70-130); Calcium 7.9 mg/dL (7.8-10.44); Carbon Dioxide 20 mmol/L (23-31); Chloride 108 mmol/L (98-107); Estimated GFR 57; Globulin 3.6 g/dL (2.4-3.5); Glucose 230 mg/dL (83-110); Magnesium 2.2 mg/dL (1.6-2.6); Potassium 3.7 mmol/L (3.5-5.1); Protein, Total 6.6 g/dL (5.8-8.1); Sodium 144 mmol/L (136-145)
[2024-07-25 06:55] LABS: Anisocytosis MODERATE=16-30 cells HPF (0-5); Band 2 % (5-11); Burr Cells MODERATE= 6-15 cells HPF (0-1); Large Platelets 3.5 % (0-5); Lymphocytes 1 % (21-51); Metamyelocyte 2 % (0-0); Monocytes 11 % (0-10); Myelocyte 1 % (0-0); Neutrophil 84 % (42-75); Nucleated RBC (Manual Ct) 2 % (0); Platelet Adequacy Comment Platelets Normal; Polychromasia MODERATE = 3-4 cells HPF (0-2); Schistocytes MODERATE= 6-15 cells HPF (0-1); Smudge Cells 0.9 %; Spherocytes SLIGHT = 1-5 cells HPF (None Seen)
[2024-07-25 06:59] LABS: #Basophils 0.03 10x3/uL (0.0-0.2); #Eosinophils Less than 0.03 10x3/uL (0.0-0.7); %Basophils 0.2 % (0.0-1.0); %Lymphocytes 2.6 % (21.0-51.0); %Monocytes 10.5 % (0.0-10.0)
[2024-07-25] MEDS ORDERED: Dextrose 5% in Water 1,000 ML IV PRN (09:26)
[2024-07-25] MEDS ORDERED: Glucagon 1 MG/ML KIT IM PRN (09:26)
[2024-07-25] MEDS: Albumin 25% 25 GM (100 mL) BOT IVPB SCH (10:01)
[2024-07-25] MEDS: Famotidine 20 MG TAB PO SCH (23:08)
[2024-07-26] MEDS ORDERED: Benzonatate 100 MG CAP PO PRN (10:59)
[2024-07-26 11:07] LABS: Hematocrit 30.4 % (36.0-47.0); Mean Corpuscular HGB CONC 29.6 g/dL (32.0-36.0); Mean Corpuscular Volume 84.4 fL (78.0-98.0); Platelet Count 194 10x3/uL (130-400); RBC Distribution Width 24.9 % (11.5-14.5)
[2024-07-26 11:13] LABS: Anion Gap 20 mmol/L (10-20); BUN (Urea Nitrogen) 54 mg/dL (9.8-20.1); Calc. Creatinine Clearance 36 mL/min (70-130); Calcium 8.6 mg/dL (7.8-10.44); Carbon Dioxide 26 mmol/L (23-31); Chloride 104 mmol/L (98-107); Estimated GFR 71; Glucose 169 mg/dL (83-110); Potassium 3.3 mmol/L (3.5-5.1); Sodium 147 mmol/L (136-145)
[2024-07-26 11:34] LABS: Anisocytosis MARKED = >30 cells HPF (0-5); Band 3 % (5-11); Burr Cells SLIGHT = 2-5 cells HPF (0-1); Elliptocytes SLIGHT = 2-5 cells HPF (0-1); Helmet Cells SLIGHT = 2-5 cells HPF (0-1); Hypochromia SLIGHT = 6-15 cells HPF (0-5); Lymphocytes 5 % (21-51); Macrocytosis SLIGHT = 6-15 cells HPF (0-5); Metamyelocyte 1 % (0-0); Microcytosis SLIGHT = 6-15 cells HPF (0-5); Monocytes 4 % (0-10); Neutrophil 88 % (42-75); Nucleated RBC (Manual Ct) 3 % (0); Ovalocytes MODERATE= 6-15 cells HPF (0-1); Platelet Adequacy Comment Platelets Normal; Poikilocytosis SLIGHT = 6-15 cells HPF (0-5); Polychromasia MODERATE = 3-4 cells HPF (0-2)
[2024-07-26] MEDS: Furosemide 20 MG TAB PO SCH (13:11)
[2024-07-26] MEDS: Potassium Chloride 20 MEQ TAB PO SCH (13:11)
[2024-07-26 15:54] LABS: Magnesium 1.9 mg/dL (1.6-2.6)
[2024-07-26] MEDS: Magnesium 2 GM/50 ML(in water) 2 GM in Premix 1 BAG IVPB SCH (17:17)
[2024-07-26] MEDS: Apixaban 2.5 MG TAB PO SCH (20:27)
[2024-07-27 05:10] LABS: Hematocrit 28.5 % (36.0-47.0); Hemoglobin 8.7 g/dL (12.0-16.0); Mean Corpuscular HGB CONC 30.5 g/dL (32.0-36.0); Mean Corpuscular Hemoglobin 25.6 pg (27.0-31.0); Mean Corpuscular Volume 83.8 fL (78.0-98.0); Platelet Count 239 10x3/uL (130-400); RBC Distribution Width 25.5 % (11.5-14.5)
[2024-07-27 05:35] LABS: Anion Gap 19 mmol/L (10-20); BUN (Urea Nitrogen) 48 mg/dL (9.8-20.1); Calc. Creatinine Clearance 39 mL/min (70-130); Calcium 8.4 mg/dL (7.8-10.44); Carbon Dioxide 28 mmol/L (23-31); Chloride 102 mmol/L (98-107); Estimated GFR 78; Glucose 221 mg/dL (83-110); Potassium 3.2 mmol/L (3.5-5.1); Sodium 146 mmol/L (136-145)
[2024-07-27 05:39] LABS: ALT (SGPT) 113 U/L (8-55); AST (SGOT) 69 U/L (5-34); Albumin 3.4 g/dL (3.4-4.8); Alkaline Phosphatase 139 U/L (40-110); Bilirubin, Direct 3.3 mg/dL (0.1-0.3); Bilirubin, Total 4.9 mg/dL (0.2-1.2); Protein, Total 6.4 g/dL (5.8-8.1)
[2024-07-27 06:03] LABS: Anisocytosis SLIGHT = 6-15 cells HPF (0-5); Hypochromia SLIGHT = 6-15 cells HPF (0-5); Lymphocytes 4 % (21-51); Microcytosis SLIGHT = 6-15 cells HPF (0-5); Monocytes 1 % (0-10); Neutrophil 95 % (42-75); Nucleated RBC (Manual Ct) 2 % (0); Platelet Adequacy Comment Platelets Normal; Poikilocytosis MODERATE=16-30 cells HPF (0-5); Polychromasia MODERATE = 3-4 cells HPF (0-2); Schistocytes SLIGHT = 2-5 cells HPF (0-1)
[2024-07-27] MEDS: Hydrocortisone Sod Succ/PF 100 mg/2 ml Vial IVP SCH (09:40)
[2024-07-27] MEDS: Potassium Chloride 20 MEQ TAB PO SCH (09:41)
[2024-07-27] MEDS: Furosemide 20 MG TAB PO SCH (09:43)
[2024-07-27] MEDS: Melatonin 3 MG TAB PO PRN (20:25)
[2024-07-28] MEDS: Sodium Chloride 0.9% 1,000 ML IV SCH (01:30)
[2024-07-28] MEDS: Lorazepam 2 MG/ML VIAL SLOW IVP SCH (03:10)
[2024-07-28] MEDS: Albumin 25% 25 GM (100 mL) BOT IVPB SCH (05:01)
[2024-07-28 05:41] LABS: Anion Gap 20 mmol/L (10-20); BUN (Urea Nitrogen) 48 mg/dL (9.8-20.1); Calc. Creatinine Clearance 38 mL/min (70-130); Calcium 8.3 mg/dL (7.8-10.44); Carbon Dioxide 24 mmol/L (23-31); Chloride 106 mmol/L (98-107); Estimated GFR 74; Glucose 137 mg/dL (83-110); Potassium 3.8 mmol/L (3.5-5.1); Sodium 146 mmol/L (136-145)
[2024-07-28 05:43] LABS: ALT (SGPT) 92 U/L (8-55); AST (SGOT) 55 U/L (5-34); Albumin 3.2 g/dL (3.4-4.8); Alkaline Phosphatase 132 U/L (40-110); Bilirubin, Direct 3.6 mg/dL (0.1-0.3); Protein, Total 6.1 g/dL (5.8-8.1)
[2024-07-28 06:01] LABS: #Basophils Less than 0.03 10x3/uL (0.0-0.2); %Basophils 0.1 % (0.0-1.0); %Eosinophils 0.4 % (0.0-10.0); %Lymphocytes 5.2 % (21.0-51.0); %Monocytes 11.4 % (0.0-10.0); %Neutrophils 81.7 % (42.0-75.0); Hematocrit 28.3 % (36.0-47.0); Hemoglobin 8.7 g/dL (12.0-16.0); Mean Corpuscular HGB CONC 30.7 g/dL (32.0-36.0); Mean Corpuscular Hemoglobin 25.7 pg (27.0-31.0); Mean Corpuscular Volume 83.5 fL (78.0-98.0); Platelet Count 137 10x3/uL (130-400); RBC Distribution Width 26.3 % (11.5-14.5); Red Blood Cell (RBC) Count 3.39 mill/uL (4.20-5.40)
[2024-07-28] MEDS: Dextrose 50% Abboject 50 ML SYRINGE SLOW IVP PRN (12:13)
[2024-07-28 14:14] VITALS: TEMP 96.8
[2024-07-28 14:17] VITALS: BMI 18.3
[2024-07-28] MEDS: Dextrose 5 %-0.45 % NaCl 1,000 ML IV SCH (14:46)
[2024-07-29 12:09] VITALS: BP 116/98
== END 2024-07-29 17:20 | disposition hospice, home (50) | DRG 871 ==
LOC: ERS 11:33 → UNDOADMIN 13:18 → CCU 13:18 → IMCU/EMU 07-23 23:38 → MSONC 07-24 18:49 → 2SE 07-25 21:06
PROVIDERS: ADMIT Internal Medicine; ATTEND Internal Medicine
PROC: 4A133R1 Monitoring of Arterial Saturation, Peripheral, Percutaneous Approach (ICD-10-PCS; principal; 2024-07-20)
PROC: 3E03329 Introduction of Other Anti-infective into Peripheral Vein, Percutaneous Approach (ICD-10-PCS; 2024-07-20)
PROC: 30233J1 Transfusion of Nonautologous Serum Albumin into Peripheral Vein, Percutaneous Approach (ICD-10-PCS; 2024-07-24)
DX: A41.51 Sepsis due to Escherichia coli [E. coli] (principal); E43 Unspecified severe protein-calorie malnutrition; R65.21 Severe sepsis with septic shock; J96.01 Acute respiratory failure with hypoxia; I50.33 Acute on chronic diastolic (congestive) heart failure; E87.1 Hypo-osmolality and hyponatremia; E87.20 Acidosis, unspecified; N39.0 Urinary tract infection, site not specified; N17.9 Acute kidney failure, unspecified; J90 Pleural effusion, not elsewhere classified; N18.4 Chronic kidney disease, stage 4 (severe); I13.0 Hypertensive heart and chronic kidney disease with heart failure and stage 1 through stage 4 chronic kidney disease, or unspecified chronic kidney disease; Z68.1 Body mass index [BMI] 19.9 or less, adult; R64 Cachexia; Z51.5 Encounter for palliative care; W19.XXXA Unspecified fall, initial encounter; I08.0 Rheumatic disorders of both mitral and aortic valves; E78.5 Hyperlipidemia, unspecified; E87.6 Hypokalemia; D69.6 Thrombocytopenia, unspecified; R29.6 Repeated falls; E16.2 Hypoglycemia, unspecified; E83.51 Hypocalcemia; D63.1 Anemia in chronic kidney disease; T79.6XXA Traumatic ischemia of muscle, initial encounter; E86.0 Dehydration; R73.9 Hyperglycemia, unspecified; R13.12 Dysphagia, oropharyngeal phase; E55.9 Vitamin D deficiency, unspecified; Z88.5 Allergy status to narcotic agent; Z88.8 Allergy status to other drugs, medicaments and biological substances
CPT/HCPCS: 36415; 36416; 36556; 51702; 70450; 71045; 71250; 72125; 74177; 80048; 80053; 80076; 80202; 81001; 82140; 82306; 82533; 82550; 82805; 83036; 83605; 83735; 83880; 83970; 84145; 84443; 84481; 84484; 85025; 87040; 87077; 87086; 87186; 93005; 93010; 93306; 96374; 96375; 99292; J0171; J0613; J0692; J0696; J1644; J1720; J1815; J1940; J2060; J2405; J3010; J3370; J3475; J3480; J7030; J7042; J7050; J7070; J7999; P9047